=== PATIENT | female | born 1965 | race Caucasian/White ===

== ENCOUNTER → 2023-07-02 17:22 | Outpatient (REF) | payer BC, SELFPAY | LOC: WDC 17:22 | PROVIDERS: ATTENDING PHYSICIAN Obstetrics & Gynecology Gynecology; FAMILY PHYSICIAN Family Medicine | DX: Z01.419 Encounter for gynecological examination (general) (routine) without abnormal findings (principal); Z12.31 Encounter for screening mammogram for malignant neoplasm of breast | CPT/HCPCS: 77063; 77067 ==

== ENCOUNTER 2023-10-15 04:33 | Inpatient (IN) | payer BC, SELFPAY ==
[2023-10-14 20:52] VITALS: BP 132/76
[2023-10-14 21:26] LABS: % Basophils 0.7 % (0-2); % Immature Granulocytes 0.1 % (0-0.5); % Lymphocytes 20.2 % (20.5-51.1); % Monocytes 7.5 % (1.7-9.3); % Neutrophils 70.5 % (42.2-75.2); Absolute Basophils 0.1 10^3/uL (0-0.2); Absolute Eosinophils 0.1 10^3/uL (0-0.7); Absolute Lymphocytes 1.4 10^3/uL (1.2-3.4); Absolute Monocytes 0.5 10^3/uL (0.1-0.6); Absolute Neutrophils 4.8 10^3/uL (1.4-6.5); Hemoglobin 14.5 g/dL (12.0-16.0); Mean Corp Hgb Conc. 35.4 g/dL (33.0-37.0); Mean Corpuscular Hgb 31.5 pg (27.0-31.0); Mean Corpuscular Volume 89.1 fL (81.0-99.0); Mean Platelet Volume 10.5 fL (7.4-10.4); Nucleated Red Blood Cells % 0 %; Platelet Count 287 10^3/uL (130-400); Red Cell Dist. Width 11.7 % (11.5-14.5); White Blood Cell Count 6.8 10^3/uL (4.8-10.8)
[2023-10-14 21:55] LABS: ALT (SGPT) 33 U/L (0-35); AST (SGOT) 34 U/L (14-36); Albumin 4.7 g/dl (3.5-5.0); Alkaline Phosphatase 92 U/L (38-126); Blood Urea Nitrogen 13 mg/dl (7-17); Calcium 10.2 mg/dl (8.4-10.2); Carbon Dioxide 24 mmol/L (22-30); Chloride 104 mmol/L (98-107); Glucose 99 mg/dl (70-99); Potassium 4.5 mmol/L (3.5-5.1); Sodium 137 mmol/L (135-145); Total Bilirubin 0.5 mg/dl (0.2-1.3); eGFR > 60.00
[2023-10-14 22:00] LABS: Troponin I < 0.012 ng/ml
[2023-10-14 22:30] VITALS: BP 134/74
[2023-10-14 23:00] VITALS: BP 125/78
--- NOTE | 2023-10-14 23:52 | ED.GENMED ---
History of Present Illness
<FAB Gilliam - Last Filed: 10/15/23 00:47>
General
Chief Complaint: Chest Pain
Source: patient
Time Seen by Provider: 10/14/23 23:38
History of Present Illness
History of Present Illness:
Patient is a 58 y/o female with PMHx of HTN and hypothyroidism presenting for burning in the chest x3 hours. She states she began 'feeling off' and then she began to get a burning in her left chest. She states she was just sitting at her house when
this happened. She states that every time she inhales it gets worse. She states she then had some numbness that went down her left arm into her hand as well as left jaw numbness. She states she still has mild symptoms but they began to improve 30
minutes ago. She states her right leg has also been cold for the last couple weeks and a week ago she began to get calf numbness. She states this has been constant over the last week. She does state she was recently diagnosed with a right heel spur
and possible Achilles tendon rupture. She states she follows up with Ortho this week. She denies any shortness of breath. She denies any recent surgeries or travel. She denies any vision changes, UGARTE, abdominal pain, nausea.
Past History
<FAB Gilliam - Last Filed: 10/15/23 00:47>
Past History
ED Past Medical History: Hypothyroidism and Other (Pneumonia)
Social History
Tobacco: Non-smoker
Living: with family
Phy Exam
<FAB Gilliam - Last Filed: 10/15/23 00:47>
Physical Exam
Physical Exam:
GENERAL: Alert , in no apparent distress
EYE: pupils equal and reactive
Throat: Airway intact, no exudates
NECK: Supple, no significant adenopathy.
CARDIAC: Regular rate and rhythm . No murmurs.
LUNGS: Clear breath sounds bilaterally, no acute respiratory distress, no wheezes/rales/rhonchi
ABDOMEN: Soft, nondistended, nontender, no cvat
NEUROLOGICAL: Alert and oriented, no focal neuro deficits
SKIN: Warm and dry, no skin discoloration, skin intact.
MUSCULOSKELETAL: No edema, well perfused. Dorsalis pedis pulses 2+ b/l.
PSYCH: Normal and appropriate interaction.
Scores
<Dorota Lyon DO - Last Filed: 10/15/23 04:17>
Heart Score for Chest Pain Patients
STEMI patient?: No
History: Moderately Suspicious
ECG: Nonspecific Repolarization
Age: >45 - <65 years
Risk Factors: 1 or 2 Risk Factors
Troponin: >1 - <3 x Normal Limit
Heart Score for Chest Pain Patients: 5
Heart Score Risk: 20.3% MACE over next 6 weeks
Course
<ST ManePA - Last Filed: 10/15/23 00:47>
Orders/Labs/Results
Orders:
Orders
10/14/23 20:53
Electrocardiogram (*1) Urgent
Reason for Study: Chest Pain
EKG- Treatment ONCE
10/14/23 21:13
CMP [Comprehensive Metabolic Panel] Urgent
Complete Blood Count/With Diff Urgent
Troponin I Urgent
10/15/23 00:24
D-Dimer Urgent
Troponin I Urgent
10/15/23 01:16
CR Chest - 2 Views Urgent
Comment:
Reason For Exam: acute chest pain
US Periph Venous LOWER Ext RT Urgent
Comment:
Reason For Exam: right calf pain
10/15/23 01:20
EKG- Treatment ONCE
10/15/23 02:45
Electrocardiogram (*1) Urgent
Reason for Study: Chest Pain
10/15/23 02:50
Troponin I Urgent
10/15/23 03:49
Aspirin Chewable [Low Strength Aspirin] 324 mg PO NOW STA
10/15/23 04:15
PTT Urgent
Comment: Obtain baseline before beginning heparin infusion if not already collected
Heparin 4,000 units IV NOW STA
Heparin INFUSION titrate rate - CONTINUOUS Heparin 78833 Units/250 ml 25,000 units in 250 ml IV PER PROTOCOL
Weight to be used for heparin protocol in kilograms (kg):: 75.1
Protocol:: Cardiac Tx/Acute Coronary
PTT Goal Range to be used:: PTT 73 to 111 seconds
Order type:: Initial
INITIAL Infusion Dose (UNITS/KG/hr) & then follow protocol:: 15 units/kg/hr
Infusion Dose in UNITS/hr & then follow protocol (UNITS/hr):: 1,150
INFUSION RATE in mL/hr & then follow protocol (mL/hr):: 11.5
PTT less than or equal to 64 seconds:: Increase rate by 200 units/hr (+ 2 mL/hr)
PTT 64.1 to 72.9 seconds:: Increase rate by 100 units/hr (+ 1 mL/hr)
PTT 73 to 111 seconds:: Target Range. No change in rate.
PTT 111.1 to 130.9 seconds:: Decrease rate by 100 units/hr (- 1 mL/hr)
PTT 131 to 199.9 seconds:: HOLD for 1 hr. Then decrease rate by 200 units/hr (- 2 mL/hr)
PTT greater than or equal to 200 seconds:: HOLD for 2 hrs & Notify Provider. Then decrease by 200 units/hr (-
2 mL/hr)
Lab follow-up:: Each change, PTT q6h until 2 consecutive are therapeutic. Then PTT
daily.
Pharmacy Request to Place See Dose Instructions PO NOW STA
Discontinue all Active Warfarin orders?: Yes
Nursing to Place Non Medication Order As Directed
Physician Order: PTT 6 hours after initial start of Heparin infusion
10/15/23 05:[address] See Dose Instructions IV DIRECTED
Abnormal Lab Results
10/14/23
21:13
MCH 31.5 H pg
(27.0-31.0)
MPV 10.5 H fL
(7.4-10.4)
Lymphocytes % 20.2 L %
(20.5-51.1)
10/14/23 21:13
10/14/23 21:13
Vital Signs
Initial and Last Documented VS:
Initial Vital Signs
Temp Pulse Resp BP Pulse Ox
98.3 F 56 22 132/76 100
10/14/23 20:52 10/14/23 20:52 10/14/23 20:52 10/14/23 20:52 10/14/23 20:52
Last Documented Vital Signs
Temp Pulse Resp BP Pulse Ox
98.3 F 49 15 133/81 98
10/14/23 20:52 10/15/23 03:00 10/15/23 03:00 10/15/23 02:00 10/15/23 03:00
<Dorota Lyon, DO - Last Filed: 10/15/23 04:17>
Orders/Labs/Results
Orders:
Orders
10/14/23 20:53
Electrocardiogram (*1) Urgent
Reason for Study: Chest Pain
EKG- Treatment ONCE
10/14/23 21:13
CMP [Comprehensive Metabolic Panel] Urgent
Complete Blood Count/With Diff Urgent
Troponin I Urgent
10/15/23 00:24
D-Dimer Urgent
Troponin I Urgent
10/15/23 01:16
CR Chest - 2 Views Urgent
Comment:
Reason For Exam: acute chest pain
US Periph Venous LOWER Ext RT Urgent
Comment:
Reason For Exam: right calf pain
10/15/23 01:20
EKG- Treatment ONCE
10/15/23 02:45
Electrocardiogram (*1) Urgent
Reason for Study: Chest Pain
10/15/23 02:50
Troponin I Urgent
10/15/23 03:49
Aspirin Chewable [Low Strength Aspirin] 324 mg PO NOW STA
10/15/23 04:15
PTT Urgent
Comment: Obtain baseline before beginning heparin infusion if not already collected
Heparin 4,000 units IV NOW STA
Heparin INFUSION titrate rate - CONTINUOUS Heparin 92230 Units/250 ml 25,000 units in 250 ml IV PER PROTOCOL
Weight to be used for heparin protocol in kilograms (kg):: 75.1
Protocol:: Cardiac Tx/Acute Coronary
PTT Goal Range to be used:: PTT 73 to 111 seconds
Order type:: Initial
INITIAL Infusion Dose (UNITS/KG/hr) & then follow protocol:: 15 units/kg/hr
Infusion Dose in UNITS/hr & then follow protocol (UNITS/hr):: 1,150
INFUSION RATE in mL/hr & then follow protocol (mL/hr):: 11.5
PTT less than or equal to 64 seconds:: Increase rate by 200 units/hr (+ 2 mL/hr)
PTT 64.1 to 72.9 seconds:: Increase rate by 100 units/hr (+ 1 mL/hr)
PTT 73 to 111 seconds:: Target Range. No change in rate.
PTT 111.1 to 130.9 seconds:: Decrease rate by 100 units/hr (- 1 mL/hr)
PTT 131 to 199.9 seconds:: HOLD for 1 hr. Then decrease rate by 200 units/hr (- 2 mL/hr)
PTT greater than or equal to 200 seconds:: HOLD for 2 hrs & Notify Provider. Then decrease by 200 units/hr (-
2 mL/hr)
Lab follow-up:: Each change, PTT q6h until 2 consecutive are therapeutic. Then PTT
daily.
Pharmacy Request to Place See Dose Instructions PO NOW STA
Discontinue all Active Warfarin orders?: Yes
Nursing to Place Non Medication Order As Directed
Physician Order: PTT 6 hours after initial start of Heparin infusion
10/15/23 05:[address] See Dose Instructions IV DIRECTED
Abnormal Lab Results
10/14/23
21:13
MCH 31.5 H pg
(27.0-31.0)
MPV 10.5 H fL
(7.4-10.4)
Lymphocytes % 20.2 L %
(20.5-51.1)
10/14/23 21:13
10/14/23 21:13
Vital Signs
Initial and Last Documented VS:
Initial Vital Signs
Temp Pulse Resp BP Pulse Ox
98.3 F 56 22 132/76 100
10/14/23 20:52 10/14/23 20:52 10/14/23 20:52 10/14/23 20:52 10/14/23 20:52
Last Documented Vital Signs
Temp Pulse Resp BP Pulse Ox
98.3 F 49 15 133/81 98
10/14/23 20:52 10/15/23 03:00 10/15/23 03:00 10/15/23 02:00 10/15/23 03:00
<FAB Gilliam - Last Filed: 10/15/23 00:47>
MDM/Problems Addressed
Differential Diagnosis Includes:
Differential diagnosis includes but is not limited to AR, angina, DVT, PE, GERD
<FAB Gilliam - Last Filed: 10/15/23 00:47>
*Pulse Oximetry
Patient hypoxic: no
*EKG
Interpreted by ED Provider?: Yes
EKG Intrepretation Date: 10/15/23
Interpretation: abnormal
Comparison EKG: changes noted (PACs are no longer present, nonspecific T wave abnormalities in anterolateral leads )
Heart Rate: 64
Rate: normal
Rhythm: sinus
[place]: normal axis
Interval: normal interval
QRS Pattern: normal QRS
Ischemia: non-specific ST changes
*Guidance Counselor Interpretation
Rate: Guidance Counselor- N/A
*Critical Care Note
Total Time (30-74mins, 75-104mins- exclusive of procedures): Not Applicable
<Dorota Lyon DO - Last Filed: 10/15/23 04:17>
*Radiology
Radiology exam reviewed: preliminary read by ED provider (Chest x-ray is unremarkable. Unchanged from previous.)
*Guidance Counselor Interpretation
Rate: normal
Interpretation: normal
Rhythm: sinus
ED Attending Note
<FAB Gilliam - Last Filed: 10/15/23 00:47>
-
Portions of this chart may have been created with voice recognition software.� Occasional wrong word or��sound alike� substitutions may have occurred due to the inherent limitations of voice recognition software.
<Dorota Lyon DO - Last Filed: 10/15/23 04:17>
ED Attending Note
Patient seen and examined by attending physician: Yes
I performed the substantive portion of visit, reviewed & personally made and approve the management plan that is documented in note by myself or DILSHAD.: Yes
ED Attending Note:
This is a 58-year-old woman who has history of hypertension, hypothyroidism maintained on levothyroxine and lisinopril.
Currently following with orthopedics, Dr. Thorntno with complaints of right posterior ankle pain, diagnosed with right Achilles tendinitis and a heel spur at initial office visit 1 week ago. She had follow-up MRI of her ankle a few days ago,
awaiting results and follow-up appointment with her orthopedist. Over the past week and a half she has noticed intermittent right posterior calf pain, cramping and feeling that her right leg is cold, especially her right foot.
No associated abdominal nor back pain. She denies leg swelling. No recent travel.
Tonight, while sitting on the couch she began to not feel well, nonspecific symptoms and overall felt 'off' she felt that the palms of her hands were sweaty, sticky and after she got up to wash her hands she then developed left-sided chest pain,
pressure that radiated to her left lateral neck/left jaw, with left arm numbness, weakness. No back pain, no headache, no palpitations, no nausea no vomiting, no diaphoresis.
No history of similar episodes in the past.
Chest pain, left arm numbness, left jaw ache lasted approximately 30 minutes and resolved shortly after arrival to the ED.
Thus far no recurrence.
She is a non-smoker. Denies alcohol use.
History of hypertension but reports well-controlled. No history of diabetes nor hyperlipidemia.
She had been taking ibuprofen for right ankle pain but discontinued this week and a half ago.
GENERAL: 58-year-old woman appears her stated age, awake and alert, pleasant, appears in no acute distress.
EYE: pupils equal, anicteric
NECK: Supple, nontender, no meningismus, no significant adenopathy. No JVD. No bruit.
ENT: oral mucosa is moist. No rhinorrhea.
CARDIAC: Regular rate and rhythm. no murmur.
LUNGS: Clear breath sounds bilaterally, no acute respiratory distress, no wheezes/rales/rhonchi
ABDOMEN: Soft, nondistended, without focal tenderness, no r/g, no cvat. normoactive BS.
NEUROLOGICAL: Alert and oriented x3, no focal neuro deficits. Motor strength is 5/5 bilaterally. Gross sensation is intact.
SKIN: Warm and dry, normal color, skin intact. No rash.
MUSCULOSKELETAL: No C/C/E. peripheral pulses are full and equal b/l. Rapid capillary refill bilateral toes. Bilateral feet are mildly cool to touch but there is no pallor nor erythema. Mild to moderate tenderness about the right Achilles tendon
with moderate pain with dorsiflexion of right foot. There is no peripheral edema, no palpable cords. Dorsalis pedis pulses are full and equal bilaterally.
PSYCH: Normal and appropriate interaction.
Concern for ACS, GERD, DVT, PE, pneumonia, pleurisy.
EKG shows normal sinus rhythm, flattened T waves laterally versus minimal terminal T wave inversion laterally nonspecific but new compared to previous EKG December 2022.
Thus far labs are unremarkable including negative troponin. Will repeat troponin and will check D-dimer as well.
There is no evidence of arterial insufficiency on exam and no significant risk factors for peripheral arterial disease.
If D-dimer negative will plan for chest x-ray.
I suspect right calf pain is related to current Achilles tendinitis but will consider venous Doppler right lower extremity assess for potential DVT.
10/15/2023 03:45 AM
Patient remains chest pain-free and comfortable.
Chest x-ray is unremarkable. Ultrasound right lower extremity negative for DVT.
D-dimer is negative.
Troponin however trending up from less than 0.012, 0.014, and down 0.020.
Repeat EKG shows terminal T wave inversions much more pronounced than initial EKG and new compared to previous EKG of December 2022.
Concern for ACS thus will admit to hospitalist service, continue to trend troponin. Will give 324 mg chewable aspirin. Will start IV heparin.
Plan for cardiology evaluation.
Discharge Plan
Departure
Patient Disposition: Admit
Date of Disposition: 10/15/23
Time of Disposition: 03:49
Admit to: Telemetry
Admit to doctor: Emmanuelle
Presentation/result/management discussed w/ accepting MD/DO: Hospitalist
Condition: Fair
Discharge Problem:
Chest pain, r/o ACS
Prescriptions:
No Action
lisinopril 5 mg Tablet
5 mg PO DAILY
levothyroxine [Synthroid] 112 mcg Tablet
112 mcg PO DAILY
Referrals:
Ginny Celeste MD [Family Provider] -
Interventions
Interventions:
*Risk Screen - Suicide Last Done: 10/14/23 20:52
*General Assessment Last Done: 08/19/24 22:15
*Neglect/Abuse Screening Last Done: 10/14/23 20:52
ED- Cardiac Assessment Last Done: 10/15/23 00:00
Discharge Date and Time
Print Language: MONEGASQUE
[2023-10-15] VITALS (34 sets, daily range): BP systolic 106–156; BP diastolic 62–108; BMI 26.0
[2023-10-15 01:04] LABS: Troponin I 0.014 ng/ml
[2023-10-15 01:14] LABS: D-Dimer < 0.27 ug/mlFEU (0.00-0.50)
--- NOTE | 2023-10-15 04:25 | HPS.HSE ---
Family Physician
-
Family Physician: Ginny Celeste
Chief Complaint
-
CP
History of Present Illness
58F HX HTN, Hypothyroid pw CP
- abrupt onset while sitting
- lasted for 3 Hrs : CP free since admission
- described as fluttering sensational and felt like indigestion at Lt upper chest
- denied radiation to left arm but felt like fatigue
- She denies any shortness of breath.
- No prior HX CAD
Recently diagnosed with a right heel spur and possible Achilles tendon rupture
Medical History
Past Medical History
Past Medical History: Reports HTN and Hypothyroidism
Past Surgical History: Reports None
Social History
Tobacco: Non-smoker
Alcohol: Occasional
Family History
Family History: Not pertinent
Allergies / Home Medications
Allergies reflects when Allergies were last updated in [facility].
Home Medications with original date entered in [facility]
Allergy/Medication List:
Allergies
Allergy/AdvReac Type Severity Reaction Status Date / Time
No Known Allergies Allergy Verified 10/14/23 21:03
Home Medications
levothyroxine 112 mcg tablet (Synthroid) 112 mcg PO DAILY 01/21/23
lisinopril 5 mg tablet 5 mg PO DAILY 01/21/23
Review of Systems
-
Constitutional: Reports No Symptoms
EENT: Reports No Symptoms
Respiratory: Reports No Symptoms
Cardiac: Reports See HPI and Chest Pain
Abdomen/GI: Reports No Symptoms
: Reports No Symptoms
Musculoskeletal: Reports No Symptoms
Skin: Reports No Symptoms
Neurological: Reports No Symptoms
Endocrine: Reports No Symptoms
Hematologic/Lymphatic: Reports No Symptoms
Psych: Reports No Symptoms
Physical Exam
Vital Signs
Vital Signs
Temp Pulse Resp BP Pulse Ox
98.3 F 49 15 133/81 98
10/14/23 20:52 10/15/23 03:00 10/15/23 03:00 10/15/23 02:00 10/15/23 03:00
Physical Exam
General: Well Developed, Well Nourished and No Apparent Distress
HEENT: NormoCephalic, Moist mucous membranes and Atraumatic
Respiratory: Clear
Cardiac: S1/S2 and Regular Rhythm; No Murmur or Rub
GI: Soft, Non Tender, Non Distended and Normal Bowel Sounds; No Organomegaly
Rectal: Deferred by Provider
Musculoskeletal: No Clubbing, No Cyanosis and No Edema
Skin: No Rash
Neuro: Nonfocal/grossly intact
Laboratory Results
-
10/14/23 21:13
10/14/23 21:13
Laboratory Results
Total Bilirubin 0.5 mg/dl (0.2-1.3) 10/14/23 21:13
AST 34 U/L (14-36) 10/14/23 21:13
ALT 33 U/L (0-35) 10/14/23 21:13
Alkaline Phosphatase 92 U/L (38-126) 10/14/23 21:13
Troponin I 0.020 ng/ml D 10/15/23 02:50
Data Reviewed
-
Medical Tests (Nuc Med, Echo, EKG etc): Report Reviewed by me
Lab Data: Labs Reviewed by me
Old Records: Reviewed
Impression/Plan
-
Reviewed VS:
Vital Signs
Temp Pulse Resp BP Pulse Ox
98.3 F 49 15 133/81 98
10/14/23 20:52 10/15/23 03:00 10/15/23 03:00 10/15/23 02:00 10/15/23 03:00
Data
nl CBC
DD < 0.27
Unramarkable CMP
TPNI < 0.012 --> 0.014 --> 0.02
EKG 10/15/23 & 0245
SINUS BRADYCARDIA
ST and T WAVE ABNORMALITY, CONSIDER ANTEROLATERAL ISCHEMIA
ABNORMAL ECG
WHEN COMPARED WITH ECG OF 14-OCT-2023 20:57,
INVERTED T WAVES HAVE REPLACED NONSPECIFIC T WAVE ABNORMALITY IN ANTEROLATERAL
LEADS
04/16/22 TTE
Normal left ventricular size, wall thickness and systolic function.
No regional wall motion abnormalities are seen.
LV ejection fraction is 60-65%.
Mild tricuspid regurgitation.
No prior echo for comparison.
NO PRIOR hospitalist admission:
ASSESSMENT & PLAN
Atypical CP for classic Angina : CP free since admission
Associated with subtle T wave inversions laterally with slowly upward trending TPNI
- concerning for [place]/ ACS
- agree with ASA and Heparin gtt
- NPO in case cardiac cath is indicated
- SL NTG PRN
- DCA card consult
Benign HTN
- cont. Lisinopril
Hypothyroid
- cont. LT4
DVT Px: on Heparin gtt
Code: Full
IP TLM
[2023-10-15] MEDS: LOW STRENGTH ASPIRIN 324 MG PO (04:28)
[2023-10-15 04:57] LABS: APTT 27.3 Sec (23.4-35.0)
[2023-10-15] MEDS: HEPARIN 4000 UNITS IV (05:13)
[2023-10-15] MEDS: FLUSH (NSS) 1 FLUSH IV (05:14)
[2023-10-15] MEDS: HEPARIN 25000 UNITS/250 ML IV (05:14)
--- NOTE | 2023-10-15 08:03 | CON.CAR ---
Addendum entered and electronically signed by Nayan Holley MD 10/15/23 11:48:
58 yo female with PMH of HTN, hyperlipidemia presented to ED after episode of chest discomfort last night. It was associated with an abnormal sensation in her left arm and jaw, and also sweaty/sticky palms. Exam with RRR, no murmurs, no edema.
TnI is within normal limits but trending up. EKG has new anterior TWI. Echo is normal.
Presentation consistent with ACS/unstable angina. ASA, heparin drip. Plan for cardiac cath today. Discussed with interventional cardiology.
Original Note:
Consultation
Consultation Request
Date/Time Consultation Requested: 10/15/2023 04:30
Date/Time Consultation Performed: 10/15/2023 07:40
Requesting Provider: Dr. Handley
Performing Provider: BELLO Valladares for Dr. Holley
Reason for Consultation: Chest pain
Medical History
-
Chief Complaint: Chest pain
History of Present Illness:
Karen Eduardo is a 58-year-old female (last seen by Dr. Padilla in 2014), with hypertension, hypothyroidism, dyslipidemia, and lumbar radiculopathy who presented to the emergency department with a chief complaint of chest discomfort. Initially it
started as 'sticky palms of my hands' but did not feel sweaty just sticky. She felt like she was in a daze, not quite confused but off. She got up to wash her hands. She then thought she would walk around 'stretch her ankle'. She then began
having left anterior chest discomfort. She says it was not painful but felt almost like a gas bubble. Her left arm felt very weak. Her left jaw felt 'funny'. She did not have any pain but it fell off. Her EKG shows an anterior T wave
abnormality with sinus bradycardia.
Of note she is currently seen with orthopedics for a right ankle injury. She does not recall any specific event where this occurred, she simply woke up with pain. She has an MRI scheduled 10/24/2023.
Past Medical History
Past Medical History: HTN, Hypercholesterolemia and Hypothyroidism
Past Surgical History: , Orthopedic and Tonsilectomy
Social History
Tobacco: Non-Smoker
Alcohol: Occasional
Drug: None
Personal:
Living: With Family
Family History
Family History: Reviewed & Not Pertinent (Denies early CAD and SCD)
Allergies / Home Medications
Allergy/AdvReac Type Severity Reaction Status Date / Time
No Known Allergies Allergy Verified 10/14/23 21:03
�Medication �Instructions �Recorded �Confirmed �Type
levothyroxine 112 mcg tablet 112 mcg PO DAILY 01/21/23 10/15/23 History
(Synthroid)
lisinopril 5 mg tablet 5 mg PO DAILY 01/21/23 10/15/23 History
Review of Systems
-
History Source: Patient
All other systems: Negative unless noted
Constitutional: Fatigue
EENT: No Symptoms
Respiratory: No Symptoms
Cardiac: Other (See HPI)
Abdomen/GI: No Symptoms
: No Symptoms
Musculoskeletal: Joint Pain (Right ankle)
Skin: No Symptoms
Neurological: No Symptoms
Endocrine: No Symptoms
Hematologic/Lymphatic: No Symptoms
Physical Exam
Vital Signs
Temp Pulse Resp BP Pulse Ox
98.3 F 51 17 132/79 99
10/14/23 20:52 10/15/23 06:00 10/15/23 06:00 10/15/23 06:00 10/15/23 04:30
Lab Results
10/14/23 21:13
10/14/23 21:13
Troponin I 0.020 ng/ml D 10/15/23 02:50
Physical Exam
General: Well Developed, Well Nourished, No Apparent Distress and Comfortable
HEENT: Normocephalic and Anicteric
Respiratory: Clear and Non Labored Respirations
Cardiac: S1/S2 and Regular Rhythm
Breast: Deferred by me
GI: Soft, Non Tender, Non Distended and Normal Bowel Sounds
Rectal: Deferred by Provider
Genito-urinary: No Costovertebral Tender
Musculoskeletal: No Clubbing, No Cyanosis and No Edema
Skin: Warm and Dry
Neuro: AO x 3
Hematologic/Lymphatic: No Lymphadenopathy
Psych: Calm
Impression / Plan
-
ACS
-Chest pain-free
-She received ASA 324mg and is on a heparin drip
-Anterolateral T wave abnormality
-Trend troponin
-Echocardiogram
-Cardiac catheterization will be recommended
Dyslipidemia
-Lipid panel 09/2023: TC 228, HDL 53, LDL 155, TG 92
-Start atorvastatin 40 mg
Sinus bradycardia
Right ankle pain, MRI scheduled for next week, she has seen orthopedics in the outpatient setting (Dr. Thornton)
Hypothyroidism, on levothyroxine
Data Reviewed
-
EKG: Report Reviewed by me (Sinus bradycardia, anterior lateral T wave abnormality, rate 52)
Radiology: Report Reviewed by me (Clear lungs without significant change.)
Ultrasound: Report Reviewed by me (RLE: No evidence of deep venous thrombosis.)
Medical Tests (Nuc Med, Echo etc): Report Reviewed by me (Echo 04/16/2022: EF 60-100%. Mild TR.)
Labs: Labs Reviewed by me
Old Records: Reviewed
[2023-10-15] MEDS: LOW STRENGTH ASPIRIN 81 MG PO (08:34)
--- NOTE | 2023-10-15 08:57 | W.PN.HOSP.TC ---
Today's Communication/Plan
-
ACS protocol. Cardiac catheterization today.
Assessment / Plan
Assessment / Plan
Physical exam:
General: Well Developed, Well Nourished and No Apparent Distress
HEENT: Normocephalic, Atraumatic and Moist Mucous Membranes
Respiratory: Clear to Auscultation; Negative Wheezes, Rales or Rhonchi
Cardiac: Regular Rhythm and S1/S2
GI: Soft, Nontender and Nondistended
Musculoskeletal: No Clubbing, No Cyanosis and No Edema
Neuro: Awake, Alert and Oriented
Psych: Calm
A/P:
Unstable angina-EKG with new T wave inversion anteriorly, troponins upward trend noticed, continue heparin drip and aspirin, nitro as needed, discussed with cardiology today. Plan for cardiac catheterization. Discussed with boyfriend at bedside.
Hypertension-restart GRACE inhibitor
Hypothyroidism-restart thyroid replacement
DVT prophylaxis-on heparin drip
CODE STATUS-full code
Anticipated Discharge: 24 - 48 hours
Subjective/Interval History
-
Date of Service: October 15, 2023
Patient denies any chest pain or shortness of breath today.
Objective Data
-
Labs:
Laboratory Results
10/14/23 10/15/23 10/15/23
21:13 04:33 11:15
WBC 6.8
Hgb 14.5
Hct 41.0
Plt Count 287
APTT 27.3 Pending
Sodium 137
Potassium 4.5
Chloride 104
Carbon Dioxide 24
BUN 13
Creatinine 0.7
Glucose 99
Calcium 10.2
Total Bilirubin 0.5
AST 34
ALT 33
Alkaline Phosphatase 92
Vital Signs:
Vital Signs
Temp Pulse Resp BP Pulse Ox
98.3 F 51 17 132/79 99
10/14/23 20:52 10/15/23 06:00 10/15/23 06:00 10/15/23 06:00 10/15/23 04:30
[2023-10-15 09:11] LABS: Troponin I < 0.012 ng/ml
--- NOTE | 2023-10-15 12:03 | CM ---
Addendum entered by Consuelo Jarvis 10/15/23 12:08:
PCP: Jose Celeste
Pharmacy: [facility] in [place]
Correction: She denied any +SDOHs.
Original Note:
CM reviewed chart.
CM introduced self and role. Spoke with patient and someone named Donald at bedside.
Dx: ACS
She is on a heparin gtt and it was recommended that she have a heart cath.
Patient is independent. She lives with her daughter.
She drives. Donald will provide transportation on discharge.
She lives in a single level home. She has no steps to enter.
She has her daughter and Donald for support.
She is retired
He denied any +SDOH's.
DISCHARGE DISPOSTION:
Discharge to home when medically stable.
[2023-10-15 12:50] LABS: ACT-LR - POC 308 Seconds (116-155)
[2023-10-15 13:11] LABS: TSH Reflex To Free T4 0.18 uIU/ml (0.47-4.68)
[2023-10-15 13:16] LABS: ACT-LR - POC 300 Seconds (116-155)
[2023-10-15 13:41] LABS: Free T4 2.13 ng/dl (0.78-2.19)
--- NOTE | 2023-10-15 14:14 | PTCARENOTE ---
Received pt from medical lab scientist via bed; pt AAOx3 and resting comfortably in bed; pt reports no pain at this time; Sinus kimmy with Prolonged QT on monitor and VSS; TR band on Right writs C/D/I, air to be removed at 1540; lungs clear; positive bowel
sounds; pt voids clear yellow urine; palpable pulses throughout; no edema noted; see nursing documentation for further details.
--- NOTE | 2023-10-15 14:40 | PTCARENOTE ---
Patient bradycardic to 30-40's on monitor. RN at bedside to see patient, patient complaining of feeling dizzy, pale, diaphoretic. Patient became unresponsive, eyes open, no reply to verbal or tactile stimuli with axillary posturing. FORGE OPERATOR called, IVF
hung, O2 2LNC applied, defib pads applied, patient returned to baseline 50's HR without pharmacological intervention, see worklist for vital signs. Patient placed in a Trendelenburg position, legs elevated. 2.77 sec pause on telemetry during this
episode. Pressure stable, satting 100% on 2LNC. Cardiology aware, internal med attending aware, all at bedside.
Patient called RN back in to report silver floaters in both eyes, and then in one eye. Cardiology notified, [facility] pending.
--- NOTE | 2023-10-15 14:45 | W.PN.UPDATE ---
Addendum entered and electronically signed by BELLO Dietrich 10/15/23 15:43:
Patient with visual changes. 'Big, bright floaters.' More prominent in her right eye. No weakness in her extremities. CT ordered.
She has received intravenous contrast in the past and denies known reactions.
Original Note:
Update Note
Progress Note Update
Notified by nursing about bradycardia. HR briefly in the 30s. Junctional escape noted. She was clammy and reported being dizzy. She was briefly unresponsive. HR quickly returned to her baseline of 50s without intervention. She was given IV fluid.
Blood glucose stable.
--- NOTE | 2023-10-15 14:48 | CM ---
CM consult to uriel merritt. CM called [facility] who reported that patient has a $0 co-pay.
[2023-10-15 14:52] LABS: Glucose - Point of Care 108 mg/dl (70-99)
--- NOTE | 2023-10-15 14:52 | CM ---
Received consult to check on co-pay for Brilinta 90 mg po bid. Telephone call to Cole valiente, ([phone]) to check on co-pay. Her co-pay will be $100.00 for a 90 day supply. She has commercial insurance so she can use the $5.00 coupon. Placed the
$5.00 coupon in her red discharge folder. Telephone call to [facility] to check if they have it in stock. [facility] has Brilinta in stock.
--- NOTE | 2023-10-15 15:00 | W.PN.UPDATE ---
Update Note
Progress Note Update
Patient had a rapid. It appears that she had a vasovagal event. Cardiac cath with stent to LAD. Cardiology attended to rapid. Will repeat labs. IVF. Discussed with cardio.
[2023-10-15 16:25] LABS: Hematocrit 37.8 % (37.0-47.0); Hemoglobin 13.3 g/dL (12.0-16.0); Mean Corp Hgb Conc. 35.2 g/dL (33.0-37.0); Mean Corpuscular Hgb 30.6 pg (27.0-31.0); Mean Corpuscular Volume 86.9 fL (81.0-99.0); Mean Platelet Volume 10.5 fL (7.4-10.4); Platelet Count 265 10^3/uL (130-400); Red Blood Cell Count 4.35 10^6/uL (4.20-5.40); Red Cell Dist. Width 11.6 % (11.5-14.5); White Blood Cell Count 7.6 10^3/uL (4.8-10.8)
[2023-10-15 16:54] LABS: Blood Urea Nitrogen 11 mg/dl (7-17); Calcium 9.4 mg/dl (8.4-10.2); Carbon Dioxide 28 mmol/L (22-30); Chloride 106 mmol/L (98-107); Estimated Creatinine Clearance 86 ml/min; Glucose 95 mg/dl (70-99); Potassium 4.5 mmol/L (3.5-5.1); Sodium 136 mmol/L (135-145); eGFR > 60.00
[2023-10-15] MEDS: LIPITOR 80 MG PO (17:06)
[2023-10-15 17:10] LABS: APTT 191.1 Sec (23.4-35.0)
[2023-10-15] MEDS: BRILINTA 90 MG PO (19:51)
--- NOTE | 2023-10-15 19:56 | PTCARENOTE ---
Pt using bed side commode. C/o lightheadedness, BP 120/73 HR 61 O2 99% on 2L. Pt safely was transferred back to bed.
[2023-10-16] VITALS (9 sets, daily range): BP systolic 107–135; BP diastolic 57–93
[2023-10-16] MEDS: SYNTHROID 112 MCG PO (04:30)
[2023-10-16 04:48] LABS: Hematocrit 36.4 % (37.0-47.0); Hemoglobin 12.9 g/dL (12.0-16.0); Mean Corp Hgb Conc. 35.4 g/dL (33.0-37.0); Mean Corpuscular Hgb 30.8 pg (27.0-31.0); Mean Corpuscular Volume 86.9 fL (81.0-99.0); Mean Platelet Volume 10.6 fL (7.4-10.4); Platelet Count 269 10^3/uL (130-400); Red Blood Cell Count 4.19 10^6/uL (4.20-5.40); Red Cell Dist. Width 11.7 % (11.5-14.5); White Blood Cell Count 8.1 10^3/uL (4.8-10.8)
[2023-10-16 05:10] LABS: Blood Urea Nitrogen 15 mg/dl (7-17); Calcium 9.7 mg/dl (8.4-10.2); Carbon Dioxide 25 mmol/L (22-30); Chloride 108 mmol/L (98-107); Estimated Creatinine Clearance 86 ml/min; Glucose 85 mg/dl (70-99); HDL Cholesterol 40 mg/dl; LDL Cholesterol, Calculated 106 mg/dl; Potassium 4.1 mmol/L (3.5-5.1); Sodium 139 mmol/L (135-145); Total Cholesterol 164 mg/dl (50-199); Triglyceride 91 mg/dl (10-149); Very Low Density Lipoprotein 18 mg/dl (0-30); eGFR > 60.00
[2023-10-16] MEDS: ZESTRIL 5 MG PO (08:18)
[2023-10-16] MEDS: BRILINTA 90 MG PO (08:19)
[2023-10-16] MEDS: LOW STRENGTH ASPIRIN 81 MG PO (08:19)
--- NOTE | 2023-10-16 08:30 | ITS.CL.ANGIO ---
Data Management Specialist - Angioplasty
Angioplasty
Procedure Report:
CARDIAC CATHETERIZATION REPORT
Date of Procedure: 10/15/2023
Performing Physician: Dr. Wade Eagle MD, PhD
Referring: Dr. Ben Holley MD, PhD
PROCEDURES PERFORMED:
1. Coronary angiography
2. Left heart catheterization
4. IVUS of LAD
5. PCI of LAD with drug-eluting stent x1
HEMODYNAMIC DATA
LVEDP 10 mmHg
No gradient on pullback across the aortic valve
CORONARY ANGIOGRAPHY
Dominance: right
Left Main: The LM is a long vessel that quadrifurcates giving rise to a LCx, high-rising OM1/ramus, high-rising D1/ramus, and the LAD. There is no disease.
LAD: gives rise to a moderate-caliber high-rising D1/ramus, moderate-caliber OM2, multiple septals, and wraps around the apex. There is a 90% stenosis in the mid-distal LAD after D2 that is the culprit for the patient's presentation and was treated
with DESx1 as described.
Circumflex: moderate caliber giving rise to a large OM1/ramus and moderate caliber OM2. There are trivial luminal irregularities.
RCA: gives rise to a moderate caliber RPDA and several RPL branches. There is no coronary artery disease.
PROCEDURE NARRATIVE (IVUS-GUIDED PCI TO LAD WITH VICENTE x1)
Heparin was administered to maintain ACT>250. The left main was engaged with an EBU 3.0 guide catheter which provided adaquate support. A short Runthrough wire was placed in the distal LAD. Straightening artifact was noted in the distal LAD. Initial
lesion preparation was performed with a 2.0x12 m balloon with full expansion noted. IVUS was performed demonstrating minimal calcification, a 2.5 mm distal reference diameter, and 2.75 mm proximal reference diameter with healthy landing zone distal
to D2. A 2.5x22 mm Medtronic VICENTE was selected and deployed at 14 javier with full expansion. Post dilation was performed in the proximal stent with a 2.75 NC balloon. Repeat IVUS demonstrated adequate apposition and expansion without evidence of
dissection. Final angiography demonstrated and excellent result with no complication and resolution of wire bias. The patient was loaded with 180 mg Ticagrelor and a TR band placed.
CONCLUSIONS:
1. Normal LV filling pressures with no aortic stenosis
2. Single-vessel obstructive coronary artery disease with culprit 90% occlusion of the mid-LAD
3. Successful IVUS-guided PCI to the mid-LAD with placement of a 2.5x22 mm VICENTE post-dilated to 2.75 mm proximally
RECOMMENDATIONS:
1. DAPT with ASA/Ticagrelor for at least 1 year
2. Aggressive secondary prevention of coronary artery disease including goal LDL<70
3. Cardiac rehab
4. TTE
5. Post-PCI follow up
Copy To: Ginny Celeste MD
Signed: Wade Eagle MD, PhD
--- NOTE | 2023-10-16 08:46 | W.CARD.POSTP ---
Post PCI Follow Up
Procedure
Procedure/Date: 10/15/23 PCI LAD x 1
Subjective: No CP, mild dyspnea and swelling in left hand
Site
Site: Radial: Right and No ht/bleeding, distal pulses palpable (mild ecchymosis, slight swelling of hand)
Tele / EKG
SR/SB no ectopy
Labs
10/16/23 04:09
10/16/23 04:09
APTT 191.1 Sec (23.4-35.0) H* 10/15/23 16:11
Triglycerides 91 mg/dl (10-149) 10/16/23 04:09
LDL Cholesterol, Calc 106 mg/dl 10/16/23 04:09
VLDL Cholesterol, Calc 18 mg/dl (0-30) 10/16/23 04:09
HDL Cholesterol 40 mg/dl 10/16/23 04:09
Free T4 2.13 ng/dl (0.78-2.19) 10/14/23 21:13
DAPT Medication
DAPT Medication: Aspirin 81mg daily and Tricagrelor 90 mg BID
Case Management checking trevino: Yes ($5/mo with coupon )
Plan
Cardiac rehab c/s
ASA/Brilinta/Lisinopril/Atorvastatin, no BB d/t bradycardia
f/u apt SOFTWARE ENGINEERING SUPERVISOR 11/12 @120pm
--- NOTE | 2023-10-16 09:34 | CM ---
Reviewed chart. Met with Mrs. Eduardo to review discharge plans. She states prior to admission she resides with her daughter in a one story home without any steps to enter. She states her daughter is away for a few days and she will be home by
herself. She states prior to admission she was independent with ambulation and adls. She states she does nto have any DME in the home. She states she has a prescription plan with [facility] and uses [facility]. Her Brilinta 90 mg po bid
prescription has been filled by [facility]. We reviewed co-pay for the Brilinta 90 mg p.o. bid and she is agreeable to the co-pay. The $5.00 coupon is in her red discharge folder. Medical work-up in progress. The discharge plan is to return
home when medically stable.
--- NOTE | 2023-10-16 09:59 | W.PN.CD ---
Today's Communication / Plan
-
discharge planning on ASA, Brilinta, atorvastatin, lisinopril
we will arrange for follow up with us
Impression / Plan
-
ACS/unstable angina: VICENTE to 90% mid LAD 10/14
-echo with normal LVEF
-cont ASA/Brilinta
-no beta roger due to sinus kimmy
-continue lisinopril 5mg daily
Dyslipidemia
-Lipid panel 09/2023: TC 228, HDL 53, LDL 155, TG 92
-Started atorvastatin 80 mg
Sinus bradycardia: stable, avoid AV tammi agents
Hypothyroidism, on levothyroxine
Physical Exam
Vital Signs/Labs
Vital Signs
Temp Pulse Resp BP Pulse Ox
98.1 F 54 20 110/72 98
10/16/23 07:28 10/16/23 08:18 10/16/23 07:28 10/16/23 08:18 10/16/23 07:28
10/15/23 10/16/23 10/17/23
06:59 06:59 06:59
Actual Weight 75.1 kg
10/16/23 04:09
10/16/23 04:09
APTT 191.1 Sec (23.4-35.0) H* 10/15/23 16:11
Triglycerides 91 mg/dl (10-149) 10/16/23 04:09
LDL Cholesterol, Calc 106 mg/dl 10/16/23 04:09
VLDL Cholesterol, Calc 18 mg/dl (0-30) 10/16/23 04:09
HDL Cholesterol 40 mg/dl 10/16/23 04:09
Free T4 2.13 ng/dl (0.78-2.19) 10/14/23 21:13
LAB Results
10/14/23 10/15/23 10/15/23
21: 00:24 02:50
Troponin I < 0.012 0.014 0.020 D
10/15/23 10/15/23 10/15/23
04:35 08:28 10:35
Troponin I Cancelled < 0.012 D Cancelled
Physical Exam
Constitutional: No acute distress and Comfortable
EENT: Moist mucous membranes
Cardiovascular: Rhythm & rate is regular, Pedal edema is absent, JVD pressure is normal and Systolic murmur absent
Respiratory: Respiratory effort normal and Lungs clear to auscul.
GI: Soft and Distention absent
Neuro/Psych: AO x 3
Data Reviewed
-
Date of Service: October 16, 2023
EKG: Other (Tele: SB 50s, brief SVT)
Labs: Labs Reviewed by me
--- NOTE | 2023-10-16 10:02 | W.PN.HOSP.TC ---
Today's Communication/Plan
-
Discharge
Assessment / Plan
Assessment / Plan
General: Well Developed, Well Nourished and No Apparent Distress
HEENT: Normocephalic, Atraumatic and Moist Mucous Membranes
Respiratory: Clear to Auscultation; Negative Wheezes, Rales or Rhonchi
Cardiac: Regular Rhythm and S1/S2
GI: Soft, Nontender and Nondistended
Musculoskeletal: No Clubbing, No Cyanosis and No Edema
Neuro: Awake, Alert and Oriented
Psych: Calm
Unstable angina -stable after cardiac catheterization. Mid LAD stent placed. Continue dual antiplatelet therapy. Outpatient cardiology follow-up.
Vasovagal syncope -back to baseline now. Does have a history of syncope as a child.
Essential hypertension -continue lisinopril.
Hypothyroidism -continue Synthroid.
Full code
Dispo -medically stable for discharge. Discussed with cardiology. Outpatient follow-up.
32 minutes spent in discharge process.
Anticipated Discharge: Today
Subjective/Interval History
-
Date of Service: October 16, 2023
Patient seen and examined. No complaints.
Objective Data
-
Labs:
Laboratory Results
10/16/23
04:09
WBC 8.1
Hgb 12.9
Hct 36.4 L
Plt Count 269
Sodium 139
Potassium 4.1
Chloride 108 H
Carbon Dioxide 25
BUN 15
Creatinine 0.7
Glucose 85
Calcium 9.7
Vital Signs:
Vital Signs
Temp Pulse Resp BP Pulse Ox
98.1 F 54 20 110/72 98
10/16/23 07:28 10/16/23 08:18 10/16/23 07:28 10/16/23 08:18 10/16/23 07:28
I&O
08/10/16/23 10/17/23
06:59 06:59 06:59
Intake Total 1100 / 1100
Balance 1100 / 1100
Review of Systems
-
History Source: Patient
All other systems: Reviewed and negative
[2023-10-16 10:07] LABS: Glycohemoglobin (HgbA1c) 5.6 % (4.0-5.6)
--- NOTE | 2023-10-16 10:08 | W.DS.TRANS ---
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
-
Discharge Instructions:
Discharge Diagnosis/Procedures Unstable angina, syncope, angioplasty and stent
to Left Anterior Descending artery
Diet Low Cholesterol,Low Fat
Activity As tolerated
Driving Restrictions As prior to admission
Bathing Restrictions None
Other Services Cardiac Rehab
Instructions:
Stand-Alone Forms: DC Instructions- Cath/EP Lab
Changes to Home Medications: No
Discharge Medications:
DC Medications w/original date entered in [employer]
levothyroxine 112 mcg tablet (Synthroid) 112 mcg PO MOTUWETHFRSA 01/21/23
lisinopril 5 mg tablet 5 mg PO DAILY 01/21/23
levothyroxine 112 mcg tablet (Synthroid) 56 mcg PO SMILEY 10/15/23
ticagrelor 90 mg tablet (Brilinta) 90 mg PO BID #180 tabs 10/15/23
aspirin 81 mg chewable tablet 81 mg PO DAILY #0 tabs 10/16/23
atorvastatin 80 mg tablet 80 mg PO QPM #30 tabs 10/16/23
nitroglycerin 0.4 mg sublingual tablet 0.4 mg sublingual Q5-15M PRN chest pain #30 tabs 10/16/23
Home Medication Changes
Pending Results: No
--- NOTE | 2023-10-16 11:15 | PTCARENOTE ---
Assumed care of pt from prev nsg shift; Pt AAOX3, flat affect. Pt w/no c/o CP or SOB. R radial site w/dressing intact w/some purple ecchymosis, but no signs or symptoms of bleeding or hematoma. Pt's RUE w/trace edema, per pt & prev nurse improved
from yesterday. Pt's VS stable w/HR in the 50's & recent BP 135/85. Pt is SB on telemetry monitoring. Pt encouraged to ambulate & D/C plan for today discussed. Pt currently OOB to & verbalized that she will ambulate in the room & halls shortly.
Pt's daughter available to pick her up late this afternoon/evening. No addtl needs at this time. Plan of care ongoing.
[2023-10-16] MEDS: LIPITOR 80 MG PO (16:53)
--- NOTE | 2023-10-16 18:40 | PTCARENOTE ---
Discussed D/C instructions w/pt & her daughter. Pt's IV & agricultural equipment salesperson removed. Pt left via wheelchair w/her personal belongings including cell phone & financial legal assistant.
== END 2023-10-16 18:59 | disposition home or self-care (01) | DRG 322 ==
LOC: IVU 04:33
PROVIDERS: Emergency Medicine; Hospitalist; Student in an Organized Health Care Education/Training Program; ADMITTING PHYSICIAN Internal Medicine; ATTENDING PHYSICIAN Hospitalist; CONSULT PHYSICIAN Internal Medicine; EMERGENCY PHYSICIAN Emergency Medicine; FAMILY PHYSICIAN Family Medicine
PROC: 4A023N7 Measurement of Cardiac Sampling and Pressure, Left Heart, Percutaneous Approach (ICD-10-PCS; 2023-10-15)
PROC: 027034Z Dilation of Coronary Artery, One Artery with Drug-eluting Intraluminal Device, Percutaneous Approach (ICD-10-PCS; 2023-10-15)
PROC: B2111ZZ Fluoroscopy of Multiple Coronary Arteries using Low Osmolar Contrast (ICD-10-PCS; 2023-10-15)
PROC: B240ZZ3 Ultrasonography of Single Coronary Artery, Intravascular (ICD-10-PCS; 2023-10-15)
DX: I25.110 Atherosclerotic heart disease of native coronary artery with unstable angina pectoris (principal); I10 Essential (primary) hypertension; E03.9 Hypothyroidism, unspecified; E78.00 Pure hypercholesterolemia, unspecified; M77.31 Calcaneal spur, right foot; M76.61 Achilles tendinitis, right leg; M54.16 Radiculopathy, lumbar region; Z79.890 Hormone replacement therapy; Z79.899 Other long term (current) drug therapy
CPT/HCPCS: 70450; 71046; 80048; 80053; 80061; 82962; 83036; 84439; 84443; 84484; 85025; 85027; 85347; 85379; 85730; 92978; 93005; 93306; 93458; 93971; 96365; 96366; 99285; C1725; C1753; C1874; C1894; C9600; Q9967

== ENCOUNTER 2023-11-22 18:48 | Emergency (ER) | payer BC, SELFPAY ==
[2023-11-22 18:49] VITALS: BP 169/90
[2023-11-22 19:42] VITALS: BMI 25.7
[2023-11-22 19:44] VITALS: BP 159/89
--- NOTE | 2023-11-22 19:57 | ED.GENMED ---
History of Present Illness
General
Chief Complaint: Chest Pain
Time Seen by Provider: 11/22/23 19:37
History of Present Illness
History of Present Illness:
Patient is a 58-year-old woman history of CAD with recent stent placement on September, hyperlipidemia, hypothyroidism presenting to the emergency department with chest pain. Patient states that for the past 5 days she has been having left sided chest
pain that occurs at rest. She states that is stabbing and sharp pain that radiates to her left breast. It is worse with a deep breath. It occurred nightly but 2 days ago it started develop more frequently. Today she has had 3 episodes. It is
not associated with exertion. It is not positional. No numbness tingling. No fevers or chills. No URI symptoms. No history of blood clots recent travel malignancy or hormone use. This does not feel similar to when she needed her stent. No
recent exercise or heavy lifting. She is currently pain-free. Last episode happened at 5 PM. She does state that she has been having some URI symptoms.
Past History
Past History
ED Past Medical History: Hypothyroidism and Other (Pneumonia)
Social History
Tobacco: Non-smoker
Living: with family
Phy Exam
Physical Exam
Physical Exam:
GENERAL: in no acute distress
HEENT: normocephalic, extraocular movements intact, moist oral mucosa
NECK: normal inspection
RESPIRATORY: no respiratory distress, clear to auscultation bilaterally
CARDIOVASCULAR: regular rate and rhythm
ABDOMEN/: soft, non-distended, non-tender to palpation, no rebound or guarding
EXTREMITIES: non-tender, no edema/swelling
NEUROLOGIC: awake and alert, moves all extremities
SKIN: warm, no rash over the chest
Scores
Heart Score for Chest Pain Patients
STEMI patient?: Not applicable
Course
Orders/Labs/Results
Orders:
Orders
11/22/23 18:50
ECG [Electrocardiogram (*1)] Urgent
Reason for Study: Chest Pain
Cardiology Consult: Unknown
11/22/23 18:51
EKG- Treatment ONCE
11/22/23 19:57
CR Chest - 2 Views Urgent
Comment:
Reason For Exam: chest pain
11/22/23 20:05
Basic Metabolic Panel Urgent
Complete Blood Count/With Diff Urgent
D-Dimer Urgent
Troponin I Urgent
11/22/23 23:00
Troponin I Routine
Abnormal Lab Results
11/22/23
20:05
Absolute Neuts (auto) 8.5 H 10^3/uL
(1.4-6.5)
Absolute Lymphs (auto) 1.1 L 10^3/uL
(1.2-3.4)
Absolute Monos (auto) 0.8 H 10^3/uL
(0.1-0.6)
Neutrophils % 80.3 H %
(42.2-75.2)
Lymphocytes % 9.9 L %
(20.5-51.1)
Calcium 10.5 H mg/dl
(8.4-10.2)
11/22/23 20:05
11/22/23 20:05
Vital Signs
Initial and Last Documented VS:
Initial Vital Signs
Temp Pulse Resp BP Pulse Ox
97.3 F 60 18 169/90 100
11/22/23 18:49 11/22/23 18:49 11/22/23 18:49 11/22/23 18:49 11/22/23 18:49
Last Documented Vital Signs
Temp Pulse Resp BP Pulse Ox
97.3 F 54 12 164/87 100
11/22/23 18:49 11/22/23 20:15 11/22/23 20:15 11/22/23 20:00 11/22/23 20:15
MDM/Problems Addressed
Differential Diagnosis Includes:
Patient is a 58-year-old woman with history of CAD with recent stent, hyperlipidemia, hypothyroidism presenting to the emergency department with episodic left-sided chest pain that is pleuritic and last about 5 minutes. Vitals here are notable for
a heart rate in the 60s and exam does not show any chest wall tenderness or rash. Unclear etiology but will rule out ACS as well as PE. Could also be pleurisy from viral infection. History and exam not consistent with pneumonia. Doubt
pneumothorax. Will check blood work including troponin and D-dimer. Will obtain chest x-ray. EKG per my interpretation without any ST changes
*Critical Care Note
Total Time (30-74mins, 75-104mins- exclusive of procedures): Not Applicable
Update Note
Update Note:
On reevaluation patient resting comfortably. Blood work is unremarkable. Will obtain delta troponin. If everything is unremarkable will discharge with PCP follow-up
ED Attending Note
-
Portions of this chart may have been created with voice recognition software.� Occasional wrong word or��sound alike� substitutions may have occurred due to the inherent limitations of voice recognition software.
Discharge Plan
Departure
Discharge Problem:
Chest pain
Instructions: Chest Pain PCP Follow Up
Prescriptions:
No Action
lisinopril 5 mg Tablet
5 mg PO DAILY
levothyroxine [Synthroid] 112 mcg Tablet
112 mcg PO MOTUWETHFRSA
levothyroxine [Synthroid] 112 mcg Tablet
56 mcg PO SMILEY
Brilinta 90 mg Tablet
90 mg PO BID Qty: 180 3RF
atorvastatin 80 mg Tablet
80 mg PO QPM Qty: 30 0RF
aspirin 81 mg Tablet,Chewable
81 mg PO DAILY Qty: 0 0RF
nitroglycerin 0.4 mg tablet, sublingual
0.4 mg sublingual Q5-15M PRN (Reason: chest pain) Qty: 30 0RF
Referrals:
Ginny Celeste MD [Family Provider] -
Activity Restrictions/Additional Instructions:
You were evaluated in the Emergency Department today for chest pain. Your evaluation has shown no signs of medical conditions requiring emergent intervention at this time, however we recommend that you follow up with your primary care physician or
your machine bookkeeper as soon as possible for further testing as an outpatient.
Please schedule an appointment for follow up with your primary care physician as soon as possible.
Return to the Emergency Department if you experience worsening or uncontrolled chest pain, shortness of breath, light headedness, feeling faint, nausea, vomiting, or any other concerning symptoms.
Thank you for choosing us for your care.
Interventions
Interventions:
*Risk Screen - Suicide Last Done: 11/22/23 18:49
*General Assessment Last Done: 11/22/23 18:49
*Neglect/Abuse Screening Last Done: 11/22/23 18:49
ED- Fall Risk Assessment Last Done: 11/22/23 19:42
*ED COVID-19 Vaccine History Last Done: 11/22/23 19:42
ED- Cardiac Assessment Last Done: 11/22/23 19:41
Discharge Date and Time
Print Language: [place] ISLAND[place]
[2023-11-22 20:00] VITALS: BP 164/87
[2023-11-22 20:12] LABS: % Basophils 0.5 % (0-2); % Eosinophils 1.1 % (0-6); % Immature Granulocytes 0.4 % (0-0.5); % Lymphocytes 9.9 % (20.5-51.1); % Monocytes 7.8 % (1.7-9.3); % Neutrophils 80.3 % (42.2-75.2); Absolute Basophils 0.1 10^3/uL (0-0.2); Absolute Eosinophils 0.1 10^3/uL (0-0.7); Absolute Lymphocytes 1.1 10^3/uL (1.2-3.4); Absolute Monocytes 0.8 10^3/uL (0.1-0.6); Absolute Neutrophils 8.5 10^3/uL (1.4-6.5); Hematocrit 39.5 % (37.0-47.0); Hemoglobin 13.8 g/dL (12.0-16.0); Mean Corp Hgb Conc. 34.9 g/dL (33.0-37.0); Mean Corpuscular Hgb 30.7 pg (27.0-31.0); Mean Corpuscular Volume 87.8 fL (81.0-99.0); Mean Platelet Volume 10.4 fL (7.4-10.4); Nucleated Red Blood Cells % 0 %; Platelet Count 284 10^3/uL (130-400); Red Cell Dist. Width 12.6 % (11.5-14.5); White Blood Cell Count 10.6 10^3/uL (4.8-10.8)
[2023-11-22 20:29] LABS: D-Dimer < 0.27 ug/mlFEU (0.00-0.50)
[2023-11-22 20:45] LABS: Troponin I < 0.012 ng/ml
[2023-11-22 20:54] LABS: Blood Urea Nitrogen 11 mg/dl (7-17); Calcium 10.5 mg/dl (8.4-10.2); Carbon Dioxide 26 mmol/L (22-30); Chloride 103 mmol/L (98-107); Estimated Creatinine Clearance 83 ml/min; Glucose 95 mg/dl (70-99); Potassium 4.3 mmol/L (3.5-5.1); Sodium 142 mmol/L (135-145); eGFR > 60.00
[2023-11-22 21:23] VITALS: BP 137/86
[2023-11-22 23:05] VITALS: BP 151/91
[2023-11-22 23:38] LABS: Troponin I < 0.012 ng/ml
== END 2023-11-22 23:58 | disposition home or self-care (01) ==
LOC: EMR 18:48
PROVIDERS: EMERGENCY PHYSICIAN Student in an Organized Health Care Education/Training Program; FAMILY PHYSICIAN Family Medicine
DX: R07.89 Other chest pain (principal); I25.10 Atherosclerotic heart disease of native coronary artery without angina pectoris; E78.5 Hyperlipidemia, unspecified; E03.9 Hypothyroidism, unspecified; Z95.5 Presence of coronary angioplasty implant and graft; Z87.01 Personal history of pneumonia (recurrent); Z79.82 Long term (current) use of aspirin; Z98.890 Other specified postprocedural states
CPT/HCPCS: 99283; 71046; 80048; 84484; 85025; 85379; 93005

== ENCOUNTER → 2023-12-03 09:28 | Outpatient (REF) | payer BC, SELFPAY | LOC: RAD 09:28 | PROVIDERS: ATTENDING PHYSICIAN Student in an Organized Health Care Education/Training Program; FAMILY PHYSICIAN Family Medicine | DX: I73.9 Peripheral vascular disease, unspecified (principal) | CPT/HCPCS: 93923 ==

== ENCOUNTER 2023-12-15 20:12 | Emergency (ER) | payer BC, SELFPAY ==
[2023-12-15 20:14] VITALS: BP 135/90
--- NOTE | 2023-12-15 20:34 | EDRN ---
Pt has river a cold leg and foot since early September. Pt had rei done and has been seen by vascular. Pt got script for angiogram R leg and was told if she could not feel her foot or saw anything bulging out of her leg to go to ED because of concern
for aneurysm. Leg still cold and has gotten worse since Saturday and pt notice something popped out on lateral R ankle yesterday. Pt says area looks better now.
[2023-12-15 20:41] VITALS: BP 141/85; BMI 24.4
[2023-12-15 21:00] VITALS: BP 129/82
[2023-12-15 21:43] LABS: % Basophils 0.7 % (0-2); % Immature Granulocytes 0.4 % (0-0.5); % Lymphocytes 9.3 % (20.5-51.1); % Monocytes 6.8 % (1.7-9.3); % Neutrophils 81.8 % (42.2-75.2); Absolute Basophils 0.1 10^3/uL (0-0.2); Absolute Eosinophils 0.1 10^3/uL (0-0.7); Absolute Monocytes 0.7 10^3/uL (0.1-0.6); Absolute Neutrophils 8.6 10^3/uL (1.4-6.5); Hematocrit 38.5 % (37.0-47.0); Hemoglobin 13.5 g/dL (12.0-16.0); Mean Corp Hgb Conc. 35.1 g/dL (33.0-37.0); Mean Corpuscular Volume 88.5 fL (81.0-99.0); Mean Platelet Volume 10.7 fL (7.4-10.4); Nucleated Red Blood Cells % 0 %; Platelet Count 285 10^3/uL (130-400); Red Blood Cell Count 4.35 10^6/uL (4.20-5.40); Red Cell Dist. Width 12.6 % (11.5-14.5); White Blood Cell Count 10.5 10^3/uL (4.8-10.8)
[2023-12-15 21:56] LABS: ALT (SGPT) 41 U/L (0-35); AST (SGOT) 39 U/L (14-36); Albumin 4.9 g/dl (3.5-5.0); Alkaline Phosphatase 88 U/L (38-126); Blood Urea Nitrogen 24 mg/dl (7-17); Calcium 10.1 mg/dl (8.4-10.2); Carbon Dioxide 26 mmol/L (22-30); Chloride 102 mmol/L (98-107); Estimated Creatinine Clearance 65 ml/min; Glucose 101 mg/dl (70-99); Potassium 4.2 mmol/L (3.5-5.1); Sodium 142 mmol/L (135-145); Total Bilirubin 0.4 mg/dl (0.2-1.3); Total Protein 7.5 g/dl (6.3-8.2); eGFR > 60.00
[2023-12-15 22:00] VITALS: BP 125/78
[2023-12-15 23:00] VITALS: BP 122/71
[2023-12-15 23:00] LABS: Erythrocyte Sed Rate 13 mm/hour (0-20)
[2023-12-15 23:12] LABS: C-Reactive Protein < 5.00 mg/L (0.0-10.00)
--- NOTE | 2023-12-15 23:33 | ED.GENMED ---
History of Present Illness
General
Chief Complaint: Vascular Symptoms
Source: patient and spouse
Exam Limitations: none
Time Seen by Provider: 12/15/23 20:47
History of Present Illness
History of Present Illness:
58-year-old female presents with a cold right leg. She states it has been ongoing since September and she saw vascular surgery. They did advise her to go to the hospital if she were ever get any kind of 'bulging' or changes. She feels like there is
more mottling noted and there was a bulge to the lateral aspect of the right ankle. Patient is scheduled to have a CT angiogram performed but has not had it. She does state that she has had ABIs. No fevers. No pain
Past History
Past History
ED Past Medical History: Hypothyroidism and Other (Pneumonia)
Social History
Tobacco: Non-smoker
Living: with family
Phy Exam
Physical Exam
Physical Exam:
CONSTITUTIONAL Patient alert and oriented to person, place and time. Well-appearing. Vital signs reviewed.
HEAD atraumatic, normocephalic.
EYES eyelids normal to inspection, Extraocular muscles intact, Conjunctiva normal, Sclera normal.
NECK normal range of motion, Trachea midline, no jugular venous distention.
RESPIRATORY CHEST No respiratory distress noted, Chest expansion equal
ABDOMEN abdomen nontender, Bowel sounds normal. No distention.
BACK normal inspection, no obvious deformities
UPPER EXTREMITY range of motion normal, Motor strength normal, no cyanosis, no edema.
LOWER EXTREMITY range of motion normal, Motor strength normal, no edema. She does have a normal dorsalis pedis pulse bilaterally but the right lower extremity is cooler than the right starting about the area at the midportion of the lower
extremity on the right. There is also slight discoloration but is not cyanotic. No pulsatile mass in the popliteal area.
NEURO Speech normal, No focal motor deficits, Ramona coma scale 15, Memory normal, Cranial Nerves intact to screening exam.
SKIN skin warm, dry, and normal in color.
Course
Orders/Labs/Results
Orders:
Orders
12/15/23 21:23
CT Angio Lower Ext W/Wo Iv Contrast [CT Lower Ext Angio W/wo Iv Con] Urgent
Comment:
Reason For Exam: cold RLE
12/15/23 21:25
C-Reactive Protein Urgent
Comment: ADD ON
Complete Blood Count/With Diff Urgent
Comprehensive Metabolic Panel Urgent
Erythrocyte Sed Rate Urgent
Comment: ADD ON
12/15/23 22:15
Add On- LAB Urgent
Tests Added?: CRP, ESR
Abnormal Lab Results
12/15/23
21:25
MPV 10.7 H fL
(7.4-10.4)
Absolute Neuts (auto) 8.6 H 10^3/uL
(1.4-6.5)
Absolute Lymphs (auto) 1.0 L 10^3/uL
(1.2-3.4)
Absolute Monos (auto) 0.7 H 10^3/uL
(0.1-0.6)
Neutrophils % 81.8 H %
(42.2-75.2)
Lymphocytes % 9.3 L %
(20.5-51.1)
BUN 24 H mg/dl
(7-17)
Glucose 101 H mg/dl
(70-99)
AST 39 H U/L
(14-36)
ALT 41 H U/L
(0-35)
12/15/23 21:25
12/15/23 21:25
Vital Signs
Initial and Last Documented VS:
Initial Vital Signs
Temp Pulse Resp BP Pulse Ox
98.3 F 66 18 135/90 99
12/15/23 20:14 12/15/23 20:14 12/15/23 20:14 12/15/23 20:14 12/15/23 20:14
Last Documented Vital Signs
Temp Pulse Resp BP Pulse Ox
98.3 F 71 16 125/78 97
12/15/23 20:14 12/15/23 22:00 12/15/23 20:41 12/15/23 22:00 12/15/23 22:00
MDM/Problems Addressed
MDM/Problems Addressed:
Cool lower extremity
*Radiology
Radiology exam reviewed: radiology read reviewed
*Pulse Oximetry
Patient hypoxic: no
*Critical Care Note
Total Time (30-74mins, 75-104mins- exclusive of procedures): Not Applicable
Data Reviewed
Source: patient and significant other
Patient Management
Escalation/DeEscalation of care consider admission/obs:
Patient is followed by vascular surgery. CTA does not show any obstruction or acute findings. Unclear etiology but she is not cyanotic and symptoms have been ongoing since September. Okay for outpatient follow-up as planned
ED Attending Note
-
Portions of this chart may have been created with voice recognition software.� Occasional wrong word or��sound alike� substitutions may have occurred due to the inherent limitations of voice recognition software.
Discharge Plan
Departure
Patient Disposition: Home (Routine Discharge)
Date of Disposition: 12/15/23
Time of Disposition: 23:37
Patient with high blood pressure during this ER visit?: No
Discharge Problem:
Cool Lower extremity
Prescriptions:
No Action
lisinopril 5 mg Tablet
5 mg PO DAILY
levothyroxine [Synthroid] 112 mcg Tablet
112 mcg PO MOTUWETHFRSA
levothyroxine [Synthroid] 112 mcg Tablet
56 mcg PO SMILEY
Brilinta 90 mg Tablet
90 mg PO BID Qty: 180 3RF
aspirin 81 mg Tablet,Chewable
81 mg PO DAILY Qty: 0 0RF
nitroglycerin 0.4 mg tablet, sublingual
0.4 mg sublingual Q5-15M PRN (Reason: chest pain) Qty: 30 0RF
Referrals:
Checo Khalil DO [Family Provider] -
Activity Restrictions/Additional Instructions:
Cool lower extremity
Please see your doctor in follow-up in the next 3 to 5 days. Return immediately for worsening symptoms, motor weakness, discoloration of the foot, or any other concerns.
Interventions
Interventions:
*Risk Screen - Suicide Last Done: 12/15/23 20:32
*General Assessment Last Done: 12/15/23 20:14
*Neglect/Abuse Screening Last Done: 12/15/23 20:32
*ED COVID-19 Vaccine History Last Done: 12/15/23 20:32
ED- Cardiac Assessment Last Done: 12/15/23 20:43
ED- Pulmonary Assessment Last Done: 12/15/23 20:43
ED-Peripheral Vascular Assessment Last Done: 12/15/23 20:43
ED-Skin Assessment Last Done: 12/15/23 20:43
Discharge Date and Time
Print Language: GREENLANDIC
== END 2023-12-16 00:05 | disposition home or self-care (01) ==
LOC: EMR 20:12
PROVIDERS: EMERGENCY PHYSICIAN Emergency Medicine; FAMILY PHYSICIAN Family Medicine
DX: R20.8 Other disturbances of skin sensation (principal)
CPT/HCPCS: 99284; 73706; 80053; 85025; 85652; 86140; Q9967

== ENCOUNTER 2024-03-20 21:36 | Emergency (ER) | payer BC, SELFPAY ==
[2024-03-20 21:42] VITALS: BP 133/72
[2024-03-20 22:09] LABS: % Basophils 0.7 % (0-2); % Eosinophils 2.8 % (0-6); % Immature Granulocytes 0.2 % (0-0.5); % Lymphocytes 17.8 % (20.5-51.1); % Monocytes 7.9 % (1.7-9.3); % Neutrophils 70.6 % (42.2-75.2); Absolute Eosinophils 0.2 10^3/uL (0-0.7); Absolute Monocytes 0.5 10^3/uL (0.1-0.6); Hematocrit 41.8 % (37.0-47.0); Hemoglobin 13.9 g/dL (12.0-16.0); Mean Corp Hgb Conc. 33.3 g/dL (33.0-37.0); Mean Corpuscular Hgb 30.7 pg (27.0-31.0); Mean Corpuscular Volume 92.3 fL (81.0-99.0); Mean Platelet Volume 10.4 fL (7.4-10.4); Nucleated Red Blood Cells % 0 %; Platelet Count 270 10^3/uL (130-400); Red Blood Cell Count 4.53 10^6/uL (4.20-5.40); Red Cell Dist. Width 12.2 % (11.5-14.5); White Blood Cell Count 5.7 10^3/uL (4.8-10.8)
[2024-03-20 22:25] LABS: ALT (SGPT) 37 U/L (0-35); AST (SGOT) 38 U/L (14-36); Albumin 4.6 g/dl (3.5-5.0); Alkaline Phosphatase 90 U/L (38-126); Blood Urea Nitrogen 13 mg/dl (7-17); Calcium 9.6 mg/dl (8.4-10.2); Carbon Dioxide 31 mmol/L (22-30); Chloride 99 mmol/L (98-107); Glucose 125 mg/dl (70-99); Lipase 142 U/L (23-300); Potassium 4.4 mmol/L (3.5-5.1); Sodium 139 mmol/L (135-145); Total Bilirubin 0.6 mg/dl (0.2-1.3); eGFR > 60.00
[2024-03-21 00:29] VITALS: BP 142/91
[2024-03-21 00:33] VITALS: BMI 23.5
[2024-03-21] MEDS: TYLENOL 1000 MG PO (00:39)
[2024-03-21 00:51] LABS: Urine Albumin Negative (Neg - Trace); Urine Bilirubin Negative (Negative); Urine Character Clear (Clear); Urine Color Yellow; Urine Glucose Negative (Negative); Urine Ketone Negative (Negative); Urine Leukocyte Trace (Negative); Urine Nitrite Negative (Negative); Urine Occult Blood 1+ (Negative); Urine Specific Gravity 1.015 (<1.030); Urine Urobilinogen Negative (Neg - 1+); Urine pH 6.5 (5.0-9.0)
--- NOTE | 2024-03-21 00:57 | ED.GENMED ---
History of Present Illness
General
Chief Complaint: Abdominal Pain
Source: patient, previous radiology exam (Abdominal ultrasound January 2021 showing 2 mobile gallstones without evidence of cholecystitis. Echogenic left hepatic lobe lesion measures up to 1.9 cm. MRI of the abdomen February 2021 showing hepatic
and angioma measuring 10 mm.) and previous hospital records (Hospitalization September 2023 for chest pain. PTCA with stent to the mid LAD.)
Exam Limitations: none
Time Seen by Provider: 03/21/24 00:00
Nursing documentation reviewed up to this point in time: agreed with
History of Present Illness
History of Present Illness:
This is a 59-year-old woman who has history of CAD status post PTCA with stent to the mid LAD September 2023. History of hyperlipidemia, hypothyroidism.
She presents with 4-day history of right upper quadrant pain that began mildly 4 days ago but much worse tonight, much worse tonight while pulling her trash cans up the driveway. She denies insightful injury but does note that pain is worse when
she is pulling or lifting. She recently recovered from an episode of bronchitis which resolved 1 week ago. She has had no recurrent cough, no shortness of breath. Right upper quadrant pain is not worsened with deep breath. She denies back pain
or flank pain, no fever nor chills. No dysuria urgency and or hematuria. She has not noticed a rash. She denies nausea nor vomiting, no diarrhea or constipation. No change in appetite and pain is not worsened nor improved with meals.
Pain is not worsened when she sits up nor twists her torso but is definitely worse with lifting/pulling especially lifting/pulling with her right arm.
She has not taken anything for discomfort.
Upon review of records, abdominal ultrasound 2020 showing 2 large mobile gallstones, echogenic left hepatic lobe lesion for which she had follow-up MRI of the abdomen February 2021 showing a benign-appearing hepatic hemangioma at 10 mm.
Past History
Past History
ED Past Medical History: CAD, Hypercholesterolemia, Hypothyroidism and Other (Pneumonia; incidental gallstones, hepatic hemangioma)
ED Past Surgical History: Cardiac (PTCA with stent to the mid LAD September 2023)
Social History
Tobacco: Non-smoker
Alcohol: None
Personal:
Living: with family
Employment: Retired
Family History
Family History: Other (Noncontributory)
Phy Exam
Physical Exam
Physical Exam:
GENERAL: 59-year-old woman appears her stated age, bright and alert, pleasant, appears in no acute distress.
EYE: anicteric
NECK: Supple, nontender, no meningismus, no significant adenopathy.
ENT: oral mucosa is moist. No rhinorrhea.
CARDIAC: Regular rate and rhythm. no murmur. There is very minimal tenderness right anterior distal costal margin. Palpation seems to exactly reproduce patient's pain complaint. There is no crepitus nor palpable bony abnormality.
LUNGS: Clear breath sounds bilaterally, no acute respiratory distress, no wheezes/rales/rhonchi
ABDOMEN: Soft, nondistended, mild tenderness palpation right upper quadrant, right lateral upper flank, no r/g, no cvat. normoactive BS. No rash appreciated. Patient able to sit up without difficulty and without appreciable pain.
NEUROLOGICAL: Alert and oriented x3, no focal neuro deficits. Gait is earl and steady.
SKIN: Warm and dry, normal color, skin intact. No rash.
MUSCULOSKELETAL: No C/C/E. peripheral pulses are full and equal b/l. No palpable tenderness.
PSYCH: Normal and appropriate interaction.
Course
Orders/Labs/Results
Orders:
Orders
03/20/24 21:47
Electrocardiogram (*1) Urgent
Reason for Study: Abdominal Pain
EKG- Treatment ONCE
IV Insert/Care/Rem.- Treatment PRN
03/20/24 21:54
Complete Blood Count/With Diff Urgent
Comprehensive Metabolic Panel Urgent
Lipase Urgent
03/21/24 00:14
Acetaminophen [Tylenol] 1,000 mg PO NOW STA
US Abdomen Complete/Upper Urgent
Comment:
Reason For Exam: RUQ pain x 4 days-worse tonight
03/21/24 00:15
CR Chest - 2 Views Urgent
Comment:
Reason For Exam: RUQ,R ant costal margin pain x 4 d, recent URI
03/21/24 00:30
Urinalysis Reflex To Culture Urgent
Date Specimen was Collected: 03/21/24
Time Specimen was Collected: 00:29
Urine Microscopic Reflex Cult Urgent
Abnormal Lab Results
03/20/24 03/21/24
21:54 00:30
Absolute Lymphs (auto) 1.0 L 10^3/uL
(1.2-3.4)
Lymphocytes % 17.8 L %
(20.5-51.1)
Carbon Dioxide 31 H mmol/L
(22-30)
Glucose 125 H mg/dl
(70-99)
AST 38 H U/L
(14-36)
ALT 37 H U/L
(0-35)
Ur Occult Blood Reflex 1+ A
(Negative)
Leukocyte Esterase Rfl Trace A
(Negative)
Urine RBC 11-15 A /HPF
(0-2)
Urine Bacteria (Reflex) Few A
(Negative)
03/20/24 21:54
03/20/24 21:54
Vital Signs
Initial and Last Documented VS:
Initial Vital Signs
Temp Pulse Resp BP Pulse Ox
98.5 F 56 18 133/72 97
03/20/24 21:42 03/20/24 21:42 03/20/24 21:42 03/20/24 21:42 03/20/24 21:42
Last Documented Vital Signs
Temp Pulse Resp BP Pulse Ox
98.5 F 56 18 121/79 96
03/20/24 21:42 03/20/24 21:42 03/20/24 21:42 03/21/24 01:15 03/21/24 01:30
MDM/Problems Addressed
Differential Diagnosis Includes:
Concern for abdominal wall muscle strain, cholecystitis, pyelonephritis, pleural effusion, pneumonia, ureteric stone is much less likely. As patient chronically maintained on Plavix/aspirin, although denies insightful injury nor fall must consider
straining injury/hematoma.
Pain is not pleuritic in nature, she has had no associated cough nor shortness of breath nor palpitations and denies chest pain. Thromboembolism/PE is unlikely.
No associated chest pain and symptoms are clearly markedly different than the chest pain she experienced in September. EKG is unremarkable and unchanged from previous. No evidence of ACS.
Labs thus far unremarkable with normal white blood cell count, normal H&H.
Chemistries are unremarkable save for very minimally elevated LFTs, similar and unchanged from previous.
Will check urinalysis. Will check chest x-ray as well as abdominal ultrasound.
Will trial Tylenol for pain.
As patient maintained on Plavix and aspirin, will avoid NSAIDs.
Chronic conditions affecting care: CAD and Other (Known hepatic hemangioma 10 mm in size noted on MRI of the abdomen February 2021; known gallstones noted on abdominal ultrasound January 2021)
Acute Exacerbation and/or Progression of Chronic Illness: CAD
*Radiology
Radiology exam reviewed: preliminary read by ED provider (Chest x-ray is unremarkable, clear lung schulte, normal heart size, similar and unchanged from previous.) and radiology read reviewed (Abdominal ultrasound shows cholelithiasis with a
completely stone filled gallbladder. Normal gallbladder wall, no pericholecystic fluid, negative Potts sign, no ductal dilatation and common bile duct normal at 3 mm. 1.2 cm hemangioma right lobe of the liver. Renal cyst on the right otherwise
kid)
*Pulse Oximetry
Patient hypoxic: no
*EKG
Interpreted by ED Provider?: Yes
Interpretation: normal
Comparison EKG: no changes (Unchanged from previous October 2023)
Rate: normal
Rhythm: sinus
[place]: normal axis
Interval: normal interval
QRS Pattern: normal QRS
Ischemia: no ischemia
*Critical Care Note
Total Time (30-74mins, 75-104mins- exclusive of procedures): Not Applicable
Update Note
Update Note:
02:15
Patient feeling improved after dose of Tylenol.
Chest x-ray is unremarkable.
Urinalysis shows 11-15 RBCs, trace leukocyte Estrace positive but only 0-2 WBCs, few bacteria. Greater than 30 squamous epithelial cells�concerning for contaminated specimen. She has had no UTI symptoms and urinalysis is not consistent with UTI.
Abdominal ultrasound shows cholelithiasis but no evidence of cholecystitis, no evidence of ductal dilatation. Benign-appearing right renal cyst otherwise kidneys appear unremarkable bilaterally.
I suspect gallstones are an incidental finding and has known incidental gallstones on previous imaging over the past several years.
Reassuring that pain has improved with Tylenol. Recommend she continue Tylenol, could also trial topical lidocaine patch.
Due to current ultrasound showing cholelithiasis with completely stone filled gallbladder, recommend follow-up with general surgery for recheck and further evaluation. Follow-up with PCP as well.
Return precautions discussed.
ED Attending Note
-
Portions of this chart may have been created with voice recognition software.� Occasional wrong word or��sound alike� substitutions may have occurred due to the inherent limitations of voice recognition software.
Discharge Plan
Departure
Patient Disposition: Home (Routine Discharge)
Date of Disposition: 03/21/24
Time of Disposition: 02:24
Patient with high blood pressure during this ER visit?: No
Discharge Problem:
Abdominal pain, RUQ, Cholelithiases
Instructions: Gallstones ED, Abdominal Pain
Prescriptions:
No Action
lisinopril 5 mg Tablet
5 mg PO DAILY
levothyroxine [Synthroid] 112 mcg Tablet
112 mcg PO MOTUWETHFRSA
levothyroxine [Synthroid] 112 mcg Tablet
56 mcg PO SMILEY
Brilinta 90 mg Tablet
90 mg PO BID Qty: 180 3RF
aspirin 81 mg Tablet,Chewable
81 mg PO DAILY Qty: 0 0RF
nitroglycerin 0.4 mg tablet, sublingual
0.4 mg sublingual Q5-15M PRN (Reason: chest pain) Qty: 30 0RF
Referrals:
Checo Khalil DO [Family Provider] - Call in 1-3 days for appt
Lars Hill MD [Active] - Call in 1-3 days for appt
Interventions
Interventions:
*Risk Screen - Suicide Last Done: 03/20/24 21:42
*General Assessment Last Done: 03/21/24 00:33
*Neglect/Abuse Screening Last Done: 03/20/24 21:42
ED- Fall Risk Assessment Last Done: 03/21/24 00:33
*ED COVID-19 Vaccine History Last Done: 03/20/24 21:45
*Nursing Disposition Last Done: 03/21/24 02:20
HW-Bqxjxc-Sjkdkewjgh Assessment Last Done: 03/21/24 00:33
Discharge Date and Time
Discharge Date/Time: 03/21/24 02:20
Print Language: TUNISIAN
[2024-03-21 01:15] VITALS: BP 121/79
[2024-03-21 01:28] LABS: Urine Squamous Cell >30 /LPF (Few)
[2024-03-21 01:29] LABS: Urine Bacteria Few (Negative); Urine White Cell 0-2 /HPF (0-5)
== END 2024-03-21 02:20 | disposition home or self-care (01) ==
LOC: EMR 21:36
PROVIDERS: Emergency Medicine; EMERGENCY PHYSICIAN Emergency Medicine; FAMILY PHYSICIAN Family Medicine
DX: R10.11 Right upper quadrant pain (principal); K80.20 Calculus of gallbladder without cholecystitis without obstruction; I25.10 Atherosclerotic heart disease of native coronary artery without angina pectoris; E78.00 Pure hypercholesterolemia, unspecified; E03.9 Hypothyroidism, unspecified
CPT/HCPCS: 99284; 71046; 76700; 80053; 81003; 81015; 83690; 85025; 93005

== ENCOUNTER → 2024-05-12 10:10 | Outpatient (REF) | payer BC, SELFPAY | LOC: EMG 10:10 | PROVIDERS: ATTENDING PHYSICIAN Physician Assistant | DX: M79.604 Pain in right leg (principal); M54.16 Radiculopathy, lumbar region; R20.2 Paresthesia of skin | CPT/HCPCS: 95886; 95910 ==

== ENCOUNTER → 2024-07-07 17:08 | Outpatient (REF) | payer BC, SELFPAY | LOC: WDC 17:08 | PROVIDERS: ATTENDING PHYSICIAN Obstetrics & Gynecology Gynecology; FAMILY PHYSICIAN Physician Assistant Medical | DX: Z12.31 Encounter for screening mammogram for malignant neoplasm of breast (principal) | CPT/HCPCS: 77063; 77067 ==

== ENCOUNTER 2024-07-31 19:04 | Emergency (ER) | payer BC, SELFPAY ==
[2024-07-31 19:15] VITALS: BP 147/88; BMI 22.7
--- NOTE | 2024-07-31 20:34 | ED.GENMED ---
History of Present Illness
<JOSE C Byrd Last Filed: 07/31/24 20:35>
General
Chief Complaint: Chest Problem
Source: patient
Time Seen by Provider: 07/31/24 20:11
History of Present Illness
History of Present Illness:
59-year-old female with history of coronary artery disease presents with several months worth of left-sided chest discomfort. Starts in the lateral chest radiates to the back of her arm and to the front of her chest. She occasionally feels short
of breath. Pain is slightly pleuritic in nature. There is no associated numbness or tingling. She denies abdominal pain nausea or vomiting. No hemoptysis. No cough or fever. No known injury. No other complaints at this time
Past History
<JOSE C Byrd Last Filed: 07/31/24 20:35>
Past History
ED Past Medical History: CAD, Hypercholesterolemia, Hypothyroidism and Other (Pneumonia; incidental gallstones, hepatic hemangioma)
ED Past Surgical History: Cardiac (PTCA with stent to the mid LAD September 2023)
Social History
Tobacco: Non-smoker
Alcohol: None
Personal:
Living: with family
Employment: Retired
Family History
Family History: Other (Noncontributory)
Phy Exam
<JOSE C Byrd Last Filed: 07/31/24 20:35>
Physical Exam
Physical Exam:
General: Well-appearing female no acute respiratory distress
HEENT: Normocephalic atraumatic
Heart: Regular rate and rhythm
Lungs: Clear no wheeze
Abdomen is soft nontender nondistended no guarding or rebound
Extremities: No cyanosis
Course
<JOSE C Byrd Last Filed: 07/31/24 20:35>
Orders/Labs/Results
Orders:
Orders
07/31/24 19:05
EKG [Electrocardiogram (*1)] Urgent
Reason for Study: Chest Pain
EKG- Treatment ONCE
07/31/24 19:07
Electrocardiogram (*1) Urgent
Reason for Study: Chest Pain
EKG- Treatment ONCE
07/31/24 20:31
CT Chest PE Study Urgent
Comment:
Reason For Exam: left chest pain
07/31/24 21:00
Complete Blood Count/With Diff Urgent
Comprehensive Metabolic Panel Urgent
Troponin I Urgent
Abnormal Lab Results
07/31/24
21:00
MCH 31.5 H pg
(27.0-31.0)
Absolute Neuts (auto) 6.6 H 10^3/uL
(1.4-6.5)
Absolute Lymphs (auto) 1.1 L 10^3/uL
(1.2-3.4)
Absolute Monos (auto) 0.8 H 10^3/uL
(0.1-0.6)
Lymphocytes % 12.8 L %
(20.5-51.1)
BUN 23 H mg/dl
(7-17)
Calcium 10.4 H mg/dl
(8.4-10.2)
07/31/24 21:00
07/31/24 21:00
Vital Signs
Initial and Last Documented VS:
Initial Vital Signs
Temp Pulse Resp BP Pulse Ox
98.4 F 68 18 147/88 99
07/31/24 19:15 07/31/24 19:15 07/31/24 19:15 07/31/24 19:15 07/31/24 19:15
Last Documented Vital Signs
Temp Pulse Resp BP Pulse Ox
98.4 F 56 14 90/67 100
07/31/24 19:15 07/31/24 22:40 07/31/24 22:40 07/31/24 22:39 07/31/24 22:40
<BELLO Sandoval - Last Filed: 07/31/24 23:52>
Orders/Labs/Results
Orders:
Orders
07/31/24 19:05
EKG [Electrocardiogram (*1)] Urgent
Reason for Study: Chest Pain
EKG- Treatment ONCE
07/31/24 19:07
Electrocardiogram (*1) Urgent
Reason for Study: Chest Pain
EKG- Treatment ONCE
07/31/24 20:31
CT Chest PE Study Urgent
Comment:
Reason For Exam: left chest pain
07/31/24 21:00
Complete Blood Count/With Diff Urgent
Comprehensive Metabolic Panel Urgent
Troponin I Urgent
Abnormal Lab Results
07/31/24
21:00
MCH 31.5 H pg
(27.0-31.0)
Absolute Neuts (auto) 6.6 H 10^3/uL
(1.4-6.5)
Absolute Lymphs (auto) 1.1 L 10^3/uL
(1.2-3.4)
Absolute Monos (auto) 0.8 H 10^3/uL
(0.1-0.6)
Lymphocytes % 12.8 L %
(20.5-51.1)
BUN 23 H mg/dl
(7-17)
Calcium 10.4 H mg/dl
(8.4-10.2)
07/31/24 21:00
07/31/24 21:00
Vital Signs
Initial and Last Documented VS:
Initial Vital Signs
Temp Pulse Resp BP Pulse Ox
98.4 F 68 18 147/88 99
07/31/24 19:15 07/31/24 19:15 07/31/24 19:15 07/31/24 19:15 07/31/24 19:15
Last Documented Vital Signs
Temp Pulse Resp BP Pulse Ox
98.4 F 56 14 90/67 100
07/31/24 19:15 07/31/24 22:40 07/31/24 22:40 07/31/24 22:39 07/31/24 22:40
<Guero Singh PA-C - Last Filed: 07/31/24 20:35>
MDM/Problems Addressed
Differential Diagnosis Includes:
Left chest pain. Consider musculoskeletal pain versus PE versus pneumothorax versus radiculopathy
Patient was due for outpatient CT of her chest in [address] of the chest today. EKG labs pending.
<BELLO Sandoval - Last Filed: 07/31/24 23:52>
MDM/Problems Addressed
Differential Diagnosis Includes:
Left chest pain. Consider musculoskeletal pain versus PE versus pneumothorax versus radiculopathy
Patient was due for outpatient CT of her chest in [address] of the chest today. EKG labs pending.
<BELLO Sandoval - Last Filed: 07/31/24 23:52>
*Radiology
Radiology exam reviewed: radiology read reviewed
*Pulse Oximetry
Patient hypoxic: no
*EKG
Interpreted by ED Provider?: Yes
Heart Rate: 71
Rate: normal
Rhythm: sinus
*Critical Care Note
Total Time (30-74mins, 75-104mins- exclusive of procedures): Not Applicable
<BELLO Sandoval - Last Filed: 07/31/24 23:52>
Update Note
Update Note:
Received signout on patient patient's CAT scan is negative for acute findings troponins negative patient is stable here with stable vital signs in no acute distress no clear diagnosis for pain however discussed with patient close outpatient
follow-up. s/s have been since October, no SOB.
ED Attending Note
<Guero Singh PA-C - Last Filed: 07/31/24 20:35>
-
Portions of this chart may have been created with voice recognition software.� Occasional wrong word or��sound alike� substitutions may have occurred due to the inherent limitations of voice recognition software.
Discharge Plan
Departure
Patient Disposition: Home (Routine Discharge)
Date of Disposition: 07/31/24
Time of Disposition: 23:50
Patient with high blood pressure during this ER visit?: Yes
Condition: Fair
Covid-19: Not Applicable
Discharge Problem:
Chest pain
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
Prescriptions:
No Action
lisinopril 5 mg Tablet
5 mg PO DAILY
levothyroxine [Synthroid] 112 mcg Tablet
112 mcg PO MOTUWETHFRSA
levothyroxine [Synthroid] 112 mcg Tablet
56 mcg PO SMILEY
Brilinta 90 mg Tablet
90 mg PO BID Qty: 180 3RF
aspirin 81 mg Tablet,Chewable
81 mg PO DAILY Qty: 0 0RF
nitroglycerin 0.4 mg tablet, sublingual
0.4 mg sublingual Q5-15M PRN (Reason: chest pain) Qty: 30 0RF
Referrals:
Obdulio Bernard PA [Family Provider, General]
Activity Restrictions/Additional Instructions:
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 Return if any worsening of symptoms.
Interventions
Interventions:
*Risk Screen - Suicide Last Done: 07/31/24 19:15
*General Assessment Last Done: 07/31/24 19:15
*Neglect/Abuse Screening Last Done: 07/31/24 19:15
*ED- Fall Risk Assessment Last Done: 07/31/24 19:15
*ED COVID-19 Vaccine History Last Done: 07/31/24 19:15
ED- Cardiac Assessment Last Done: 07/31/24 21:39
ED- Pulmonary Assessment Last Done: 07/31/24 21:39
Discharge Date and Time
Print Language: MAORI
[2024-07-31 21:15] LABS: % Basophils 0.8 % (0-2); % Immature Granulocytes 0.2 % (0-0.5); % Lymphocytes 12.8 % (20.5-51.1); % Neutrophils 75.2 % (42.2-75.2); Absolute Basophils 0.1 10^3/uL (0-0.2); Absolute Eosinophils 0.2 10^3/uL (0-0.7); Absolute Lymphocytes 1.1 10^3/uL (1.2-3.4); Absolute Monocytes 0.8 10^3/uL (0.1-0.6); Absolute Neutrophils 6.6 10^3/uL (1.4-6.5); Hemoglobin 14.1 g/dL (12.0-16.0); Mean Corp Hgb Conc. 34.4 g/dL (33.0-37.0); Mean Corpuscular Hgb 31.5 pg (27.0-31.0); Mean Corpuscular Volume 91.7 fL (81.0-99.0); Mean Platelet Volume 10.4 fL (7.4-10.4); Nucleated Red Blood Cells % 0 %; Platelet Count 271 10^3/uL (130-400); Red Blood Cell Count 4.47 10^6/uL (4.20-5.40); Red Cell Dist. Width 12.4 % (11.5-14.5); White Blood Cell Count 8.7 10^3/uL (4.8-10.8)
[2024-07-31 21:32] LABS: ALT (SGPT) 29 U/L (0-35); AST (SGOT) 29 U/L (14-36); Albumin 4.9 g/dl (3.5-5.0); Alkaline Phosphatase 66 U/L (38-126); Blood Urea Nitrogen 23 mg/dl (7-17); Calcium 10.4 mg/dl (8.4-10.2); Carbon Dioxide 27 mmol/L (22-30); Chloride 106 mmol/L (98-107); Estimated Creatinine Clearance 64 ml/min; Glucose 99 mg/dl (70-99); Potassium 4.5 mmol/L (3.5-5.1); Sodium 142 mmol/L (135-145); Total Bilirubin 0.6 mg/dl (0.2-1.3); Total Protein 7.7 g/dl (6.3-8.2); eGFR > 60.00
[2024-07-31 21:42] LABS: Troponin I < 0.012 ng/ml
[2024-07-31 22:39] VITALS: BP 90/67
[2024-07-31 23:00] VITALS: BP 112/67
== END 2024-08-01 00:20 | disposition home or self-care (01) ==
LOC: EMR 19:04
PROVIDERS: Emergency Medicine; EMERGENCY PHYSICIAN Emergency Medicine; FAMILY PHYSICIAN Physician Assistant Medical
DX: R07.89 Other chest pain (principal); R06.02 Shortness of breath; I25.10 Atherosclerotic heart disease of native coronary artery without angina pectoris; E78.00 Pure hypercholesterolemia, unspecified; E03.9 Hypothyroidism, unspecified; Z95.5 Presence of coronary angioplasty implant and graft
CPT/HCPCS: 99284; 71275; 80053; 84484; 85025; 93005; Q9967

== ENCOUNTER → 2024-10-29 09:49 | Outpatient (REF) | payer BC, SELFPAY | LOC: HWRAD 09:49 | PROVIDERS: ATTENDING PHYSICIAN Physician Assistant Medical | DX: R22.2 Localized swelling, mass and lump, trunk (principal) | CPT/HCPCS: 76604 ==

== ENCOUNTER 2024-11-11 17:11 | Observation (INO) | payer BC, SELFPAY ==
[2024-11-11] VITALS (8 sets, daily range): BP systolic 110–175; BP diastolic 70–103; BMI 24.6; BMI 23.0
[2024-11-11 14:13] LABS: Hematocrit 43.0 % (37.0-47.0); Hemoglobin 14.2 g/dL (12.0-16.0); Mean Corp Hgb Conc. 33.0 g/dL (33.0-37.0); Mean Corpuscular Volume 92.7 fL (81.0-99.0); Nucleated Red Blood Cells % 0 %; Platelet Count 283 10^3/uL (130-400); Red Cell Dist. Width 12.4 % (11.5-14.5)
[2024-11-11 14:38] LABS: Troponin I < 0.012 ng/ml
[2024-11-11 14:45] LABS: ALT (SGPT) 51 U/L (0-35); AST (SGOT) 39 U/L (14-36); Albumin 4.8 g/dl (3.5-5.0); Alkaline Phosphatase 95 U/L (38-126); Blood Urea Nitrogen 18 mg/dl (7-17); Calcium 10.2 mg/dl (8.4-10.2); Carbon Dioxide 28 mmol/L (22-30); Chloride 103 mmol/L (98-107); Glucose 107 mg/dl (70-99); Potassium 5.3 mmol/L (3.5-5.1); Sodium 137 mmol/L (135-145); Total Protein 7.4 g/dl (6.3-8.2); eGFR > 60.00
--- NOTE | 2024-11-11 15:02 | ED.GENMED ---
History of Present Illness
General
Chief Complaint: Chest Pain
Time Seen by Provider: 11/11/24 15:02
History of Present Illness
History of Present Illness:
FOCUSED PAST MEDICAL HISTORY
- CAD
REVIEW OF OLD RECORDS
- The patient had a coronary cath in September [address] Eagle and was found to have 90% mid LAD lesion with stent placed and was recommended to be on aspirin and Brilinta for a year. At that time her troponins were negative.
Note:
CHIEF COMPLAINT(S)
Chest pain
HISTORY OF PRESENT ILLNESS
The patient is a 59-year-old female with a history of stent placement in the mid-portion of the left anterior descending (LAD) coronary artery. She presented with episodes of chest pain that she describes as a stabbing and squeezing sensation
localized to the center of her chest. These episodes have occurred approximately 7 to 8 times, starting around 9 PM the previous night, and last for about 5 to 10 minutes. Initially, each episode lasted longer, approximately 15 to 20 minutes. The
pain occurs every two hours and is improved with rest. The patient reports that the pain is constant and does not change with movement. She denies recent falls or injuries to the chest wall and states that movement like flexing forward does not
alter the pain. The patient denies leg swelling or difficulty breathing. She describes no increase in symptoms with physical activities such as walking or ascending stairs. Initial cardiac workup, including blood tests and electrocardiogram (EKG),
indicated a slight change without major abnormalities. The patient will have her cardiac blood work repeated to further evaluate for acute coronary events.
PAST MEDICAL AND SURIGICAL HISTORY
The patient has a history of stent placement in the LAD coronary artery while being asymptomatic at the time of the procedure. She denies any previous endoscopies or evaluations of the esophagus or stomach.
EXTERNAL RECORDS REVIEWED
Review of the patients records indicates a previous cardiac catheterization performed by Dr. Bishop from [facility] with stent placement in the LAD. Dr. Courtney from [facility] has been identified as her current motor grader rough grade in the [facility] system.
PHYSICAL EXAM
General: Alert, no acute distress. Vital signs are normal.
Skin: Warm, dry.
Head: Normocephalic, atraumatic.
Neck: Supple, trachea midline.
Eye, Ears, Nose, Mouth, and Throat: Oral mucosa moist.
Cardiovascular: Normal peripheral perfusion, No edema. There is tenderness to palpation focally in the center of the sternum which is mild to moderate
Respiratory: Respirations are non-labored. Sounds are clear and equal
Gastrointestinal: Abdomen nondistended.
Back: Normal range of motion, Normal alignment.
Musculoskeletal: Normal ROM, normal strength.
Neurological: Alert and oriented to person, place, time, and situation. No focal neurological deficit observed.
Psychiatric: Cooperative, appropriate mood & affect.
PLAN
The plan includes consulting with the motor grader rough grade regarding the subtle changes in the EKG and repeating the cardiac blood work after three hours to rule out any acute coronary event. The cardiologists opinion will guide further management.
DIFFERENTIAL DIAGNOSIS
The Differential Diagnosis includes, in no particular order and is not limited to:
1. Non-cardiac chest pain
2. Myocardial ischemia
3. Acute coronary syndrome
4. Gastroesophageal reflux disease (GERD)
5. Musculoskeletal chest pain
6. Anxiety-related chest pain
7. Pulmonary embolism
8. Aortic dissection
9. Costochondritis
10. Peptic ulcer disease
EKG
- Sinus 54, suggestion of biphasic T wave in V3 through V5 which appears new in comparison to 07/31/2024
LABS
- CBC normal, potassium 5.3, troponin less than 0.012
UPDATE
-Discussion w/ Dr. Holley: 'SABINA HELEN, 59F, ROOM 30. Eagle stented mid-LAD lesion 09/2023 and at that time had no CP, just 'pasty hands and felt off'. Now w/ 16hrs of intermittent stabbing chest pain in center of chest that is non-exertional.
Initial trop negative, but EKG has more of a biphasic STT in V3-V5 which is new. Pain is becoming less frequent and there is some reproducibility. This HPI doesn't sound like much, but I don't want to ignore the EKG. She saw you in past, but ended
up seeing a Dr. Manzano at [facility] at recommendation of family members. Would you want to see in ED? I am planning on doing another trop at 5pm.'-Dr. Holley has agreed to evaluate the patient in the ED.
SUMMARY OF ENCOUNTER
The patient, a 59-year-old female, presented to the emergency department with episodes of chest pain. Due to her history of stent placement in the left anterior descending (LAD) coronary artery and the nature of her symptoms, the decision was made
to admit the patient for further management, including administration of aspirin and heparin, with a plan for cardiac catheterization the following day.
DISPOSITION
Admit
MANAGEMENT OF THE PATIENTS CARE WAS DISCUSSED WITH
Dr. Holley, upon evaluation in the emergency department, recommended that the patient stay in the hospital. He consulted with the hospitalists for admission and planned a cardiac catheterization for the following day.
MEDICAL DECISION MAKING
-Complexity of Data Reviewed: Chronic conditions affecting care with past medical history of stent placement in the LAD coronary artery. Differential diagnosis includes 1. Non-cardiac chest pain, 2. Myocardial ischemia, 3. Acute coronary syndrome,
4. Gastroesophageal reflux disease (GERD), 5. Musculoskeletal chest pain, 6. Anxiety-related chest pain, 7. Pulmonary embolism, 8. Aortic dissection, 9. Costochondritis, 10. Peptic ulcer disease.
-Data:
Category 3
Discussion of management with Dr. Holley, who recommended hospitalization and further cardiac evaluation.
DIAGNOSIS
Acute coronary syndrome, unspecified (ICD-10: I24.9)
Past History
Past History
ED Past Medical History: CAD, Hypercholesterolemia, Hypothyroidism and Other (Pneumonia; incidental gallstones, hepatic hemangioma)
ED Past Surgical History: Cardiac (PTCA with stent to the mid LAD September 2023)
Social History
Tobacco: Non-smoker
Alcohol: None
Personal:
Living: with family
Employment: Retired
Family History
Family History: Other (Noncontributory)
Phy Exam
Physical Exam
Physical Exam:
See HPI
Scores
Heart Score for Chest Pain Patients
STEMI patient?: Not applicable
Course
Orders/Labs/Results
Orders:
Orders
11/11/24 13:45
Electrocardiogram (*1) Urgent
Reason for Study: Chest Pain
EKG- Treatment ONCE
11/11/24 13:59
Complete Blood Count/With Diff Urgent
Comprehensive Metabolic Panel Urgent
Troponin I Urgent
11/11/24 15:15
EKG- Treatment ONCE
11/11/24 17:00
Electrocardiogram (*1) Urgent
Reason for Study: Chest Pain
Troponin I Urgent
Abnormal Lab Results
11/11/24
13:59
Potassium 5.3 H mmol/L
(3.5-5.1)
BUN 18 H mg/dl
(7-17)
Glucose 107 H mg/dl
(70-99)
AST 39 H U/L
(14-36)
ALT 51 H U/L
(0-35)
11/11/24 13:59
11/11/24 13:59
Vital Signs
Initial and Last Documented VS:
Initial Vital Signs
Temp Pulse Resp BP Pulse Ox
36.4 C 55 16 175/103 98
11/11/24 13:49 11/11/24 13:49 11/11/24 13:49 11/11/24 13:49 11/11/24 13:49
Last Documented Vital Signs
Temp Pulse Resp BP Pulse Ox
36.4 C 52 16 111/72 100
11/11/24 13:49 11/11/24 15:00 11/11/24 15:00 11/11/24 15:00 11/11/24 15:04
*Pulse Oximetry
SaO2: 100
Oxygen Mode of Delivery: Room air
Patient hypoxic: no
*Critical Care Note
Total Time (30-74mins, 75-104mins- exclusive of procedures): Not Applicable
ED Attending Note
-
Portions of this chart may have been created with voice recognition software.� Occasional wrong word or��sound alike� substitutions may have occurred due to the inherent limitations of voice recognition software.
Discharge Plan
Departure
Patient Disposition: Admit
Date of Disposition: 11/11/24
Time of Disposition: 16:15
Presentation/result/management discussed w/ accepting MD/DO: Hospitalist
Discharge Problem:
Acute coronary syndrome
Prescriptions:
No Action
lisinopril 5 mg Tablet
5 mg PO DAILY
levothyroxine [Synthroid] 112 mcg Tablet
112 mcg PO MOTUWETHFRSA
levothyroxine [Synthroid] 112 mcg Tablet
56 mcg PO SMILEY
Brilinta 90 mg Tablet
90 mg PO BID Qty: 180 3RF
aspirin 81 mg Tablet,Chewable
81 mg PO DAILY Qty: 0 0RF
nitroglycerin 0.4 mg tablet, sublingual
0.4 mg sublingual Q5-15M PRN (Reason: chest pain) Qty: 30 0RF
Referrals:
Obdulio Bernard PA [Family Provider, General]
Interventions
Interventions:
*Risk Screen - Suicide Last Done: 11/11/24 13:49
*General Assessment Last Done: 11/11/24 13:49
*Neglect/Abuse Screening Last Done: 11/11/24 13:49
*ED- Fall Risk Assessment Last Done: 11/11/24 13:49
*ED COVID-19 Vaccine History Last Done: 11/11/24 13:49
Discharge Date and Time
Print Language: S[place]ORE[place]
--- NOTE | 2024-11-11 16:21 | HPS.HSE ---
Family Physician
-
Family Physician: SORAIDA Gates
Chief Complaint
-
chest pain
History of Present Illness
Patient is a 59-year-old female with past medical history significant for hypertension, hyperlipidemia, hypothyroid and CAD who presented to [facility] ED for evaluation of chest pain. Patient reports acute onset of midsternal chest pain around 2100 last
night while shopping at grocery store, it lasted approximately 20mins and subsided once she sat down for a period of time. Patient states pain did not radiate and has occurred every few hours since then with and without exertional aggravating
factors, it did wake her from sleep over night x2. Since pain continued throughout the first half of today she felt she needed to come for evaluation. She denies any dizziness, shortness of breath, dizziness, palpitations or diaphoresis. Patient
notes that rosuvastatin has been on hold for approximately last month for elevated LFTs.
Medical History
Past Medical History
Past Medical History: Reports Other
Additional Past Medical History:
hypertension
hyperlipidemia
hypothyroid
CAD
Past Surgical History: Reports Other
Additional Past Surgical History:
cardiac cath with stent
tonsillectomy
section x2
Social History
Tobacco: Non-smoker
Alcohol: None
Family History
Family History: Other (Mother: CVA, a-fib; Brother: a-fib; Father: prostate cancer, hypothyroid )
Allergies / Home Medications
Allergies reflects when Allergies were last updated in [employer].
Home Medications with original date entered in [employer]
Allergy/Medication List:
Allergies
Allergy/AdvReac Type Severity Reaction Status Date / Time
No Known Allergies Allergy Verified 07/31/24 19:15
Home Medications
levothyroxine 112 mcg tablet (Synthroid) 112 mcg PO DAILY 01/21/23
lisinopril 5 mg tablet 5 mg PO DAILY 11/27/23
ticagrelor 90 mg tablet (Brilinta) 90 mg PO BID #180 tabs 10/15/23
aspirin 81 mg chewable tablet 81 mg PO DAILY #0 tabs 10/16/23
rosuvastatin 5 mg tablet 5 mg PO MOWEFR 11/11/24
Review of Systems
-
History Source: Patient
Constitutional: Denies Fever or Chills
EENT: Reports No Symptoms
Respiratory: Denies Cough or Trouble Breathing
Cardiac: Reports Chest Pain; Denies Diaphoresis, Palpitations or Syncope
Abdomen/GI: Denies Abdominal Pain, Nausea, Vomiting, Diarrhea or Constipated
: Denies Frequency or Urgency
Musculoskeletal: Denies Joint Swelling or Edema
Skin: Reports No Symptoms
Neurological: Reports No Symptoms; Denies Dizzy, Headache, Weakness or Numbness
Endocrine: Reports No Symptoms
Hematologic/Lymphatic: Reports No Symptoms
Psych: Reports No Symptoms
Physical Exam
Vital Signs
Vital Signs
Temp Pulse Resp BP Pulse Ox
97.5 F 52 16 111/72 100
11/11/24 13:49 11/11/24 15:00 11/11/24 15:00 11/11/24 15:00 11/11/24 15:04
Physical Exam
General: Well Developed, Well Nourished and No Apparent Distress
HEENT: NormoCephalic, Moist mucous membranes and Atraumatic
Respiratory: Clear and Non Labored Respirations
Cardiac: S1/S2 and Regular Rhythm; No Murmur, Rub, Gallop or Peripheral Edema
Breast: Deferred by me
GI: Soft, Non Tender, Non Distended and Normal Bowel Sounds; No Organomegaly
Rectal: Deferred by Provider
Genito-urinary: Deferred by me
Musculoskeletal: No Clubbing, No Cyanosis and No Edema
Skin: Warm and IV/Catheter Site
Neuro: Awake, AO x 3 and Nonfocal/grossly intact
Hematologic/Lymphatic: No Lymphadenopathy
Psych: Calm and Intact Judgment/Insight
Laboratory Results
-
11/11/24 13:59
11/11/24 13:59
Laboratory Results
Total Bilirubin 0.4 mg/dl (0.2-1.3) 11/11/24 13:59
AST 39 U/L (14-36) H 11/11/24 13:59
ALT 51 U/L (0-35) H 11/11/24 13:59
Alkaline Phosphatase 95 U/L (38-126) 11/11/24 13:59
Troponin I < 0.012 ng/ml 11/11/24 13:59
Data Reviewed
-
Medical Tests (Nuc Med, Echo, EKG etc): Report Reviewed by me (EKG: SINUS BRADYCARDIA T WAVE ABNORMALITY, CONSIDER LATERAL ISCHEMIA)
Lab Data: Labs Reviewed by me
Impression/Plan
-
IMPRESSION/PLAN:
#unstable angina
trop <0.012
EKG: SINUS BRADYCARDIA
T WAVE ABNORMALITY, CONSIDER LATERAL ISCHEMIA
- Admit to IVU
- Consult Cardiology
- NPO at midnight for cath tomorrow
- Heparin gtt
- full dose aspirin given in ED
- trend troponin
- ECHO
- continue aspirin and Brilinta
- PRN nitro for chest pain
#hypertension
- continue lisinopril
#hyperlipidemia
- rosuvastatin on hold for approximately 1 month for elevated LFTs
#hypothyroid
- continue levothyroxine
#CAD
s/p cardiac cath with stent to LAD
Code status: full code
DVT prophylaxis: heparin gtt
--- NOTE | 2024-11-11 16:26 | CON.CAR ---
Addendum entered and electronically signed by Nayan Holley MD 11/11/24 17:08:
I saw and examined the patient independently. I performed majority of MDM.
The SOCIAL WORK MSW's note was reviewed and I agree with the note, with additions/changes as noted below.
Comment: 59 yo female with PMH of CAD s/p VICENTE to LAD 09/2023 admitted with chest pain. She went shopping last night. [place] squeezing sensation in chest, which then resolved. She then felt another few episodes at rest overnight. She is currently chest
pain free. Exam with RRR, no murmurs, no edema. EKG: NSR, anterolateral TWI. TnI <0.012.
ACS/unstable angina. Threat to life. Currently chest pain free, Anterolateral TWI had resolved following prior PCI, but now are present again. ASA 324mg, heparin drip. She continues on brilinta. Plan for cath in AM.
Original Note:
Consultation
Consultation Request
Date/Time Consultation Requested: 11/11/247
Date/Time Consultation Performed: 11/11/24 1535
Requesting Provider: Dr. Barragan
Performing Provider: Ana MONSALEV for Dr. Holley
Reason for Consultation: chest discomfort, abnormal EKG
Medical History
-
Chief Complaint: chest discomfort
History of Present Illness:
59 y/o female with hypothyroidism, hypertension, dyslipidemia, and CAD with LAD stenting (10/16/23) who is here with midsternal chest squeeze that started last night around 9 PM while she was shopping. It lasted about 20 minutes. It has recurred
about every 2 hours since then, including at rest. No correlation with any particular activity. It is not present currently. Trop is normal. EKG shows anterolateral t wave abnormality. She has had VEGA for about 1 month, and also reports some head
pressure for 2 weeks. She is off her statin currently due to abnormal LFT's. Dr. Manzano is her primary nuclear control operator and she last saw him about 1 month ago, and reports stability from cardiac standpoint at that time. She is in no distress at the
time of my assessment.
Past Medical History
Past Medical History: CAD, HTN, Hypercholesterolemia and Hypothyroidism
Social History
Tobacco: Non-Smoker
Alcohol: None
Family History
Family History: Reviewed & Not Pertinent (no early CAD)
Allergies / Home Medications
Allergy/AdvReac Type Severity Reaction Status Date / Time
No Known Allergies Allergy Verified 07/31/24 19:15
�Medication �Instructions �Recorded �Confirmed �Type
levothyroxine 112 mcg tablet 112 mcg PO MOTUWETHFRSA 01/21/23 12/15/23 History
(Synthroid)
lisinopril 5 mg tablet 5 mg PO DAILY 01/21/23 12/15/23 History
levothyroxine 112 mcg tablet 56 mcg PO SMILEY 10/15/23 12/15/23 History
(Synthroid)
ticagrelor 90 mg tablet (Brilinta) 90 mg PO BID #180 tabs 10/15/23 12/15/23 Rx
aspirin 81 mg chewable tablet 81 mg PO DAILY #0 tabs 10/16/23 12/15/23 Rx
nitroglycerin 0.4 mg sublingual 0.4 mg sublingual Q5-15M PRN chest 10/16/23 12/15/23 Rx
tablet pain #30 tabs
Review of Systems
-
History Source: Patient
All other systems: Negative unless noted
Constitutional: Other (head pressure )
Respiratory: Trouble Breathing
Cardiac: Chest Pain
Physical Exam
Vital Signs
Temp Pulse Resp BP Pulse Ox
97.5 F 52 16 111/72 100
11/11/24 13:49 11/11/24 15:00 11/11/24 15:00 11/11/24 15:00 11/11/24 15:04
Lab Results
11/11/24 13:59
11/11/24 13:59
Troponin I < 0.012 ng/ml 11/11/24 13:59
Physical Exam
General: Well Developed, Well Nourished and No Apparent Distress
HEENT: Normocephalic and Anicteric
Respiratory: Clear and Non Labored Respirations
Cardiac: Regular Rhythm
Musculoskeletal: No Edema
Skin: Warm and Dry
Neuro: AO x 3
Psych: Calm
Impression / Plan
-
ACS/USA:
-this diagnosis is threat to life
-give full dose aspirin now, start heparin drip, which requires intensive monitoring
-continue ASA and Brilinta
-check lipids and hgbA1c. Has been off statin due to abnormal LFT's.
-nitro if needed for CP. Not on BB due to bradycardia.
-cath in AM, or sooner if the need arises
-follow trops and EKG's
-obtain echo
CAD with hx LAD stenting:
-continue ASA and brilinta
-plan as above
Dyslipidemia:
-check lipids
-statin issue as above
HTN:
-stable
-continue ACEI and monitor
Data Reviewed
-
EKG: Tracing Personally Visualized and interpreted (SB 54 BPM, anterolateral t wave changes)
Medical Tests (Nuc Med, Echo etc): Report Reviewed by me (echo 10/19/23: Normal echocardiogram. LVEF 65-70%. Compared to 04/16/22: no significant change. ) and Other (cath 10/16/23: 1. Normal LV filling pressures with no aortic stenosis 2.
Single-vessel obstructive coronary artery disease with culprit 90% occlusion of the mid-LAD 3. Successful IVUS-guided PCI to the mid-LAD with placement of a 2.5x22 mm VICENTE post-dilated to 2.75 mm proximally)
Labs: Labs Reviewed by me
Scores
TITO for NSTEMI
Age >/= 65: No
>/=3 CAD risk factors-HTN,High Chol,Fam hx CAD,DM,Smoker: No
Known CAD (stenosis >/=50%): Yes
ASA use in past 7 days: Yes
Severe angina (>/= 2 episodes in 24 hrs): Yes
EKG ST Changes >/= 0.5mm: No
Positive cardiac marker: No
Score: 3
Risk at 14 days-mortality, new/recurrent LA, severe ischemia: Intermediate Risk- 13% Risk at 14 days- all cause mortality, new or recurrent LA, or severe recurrent ischemia requiring urgent revascularization
[2024-11-11] MEDS: HEPARIN 25000 UNITS/250 ML IV (16:32)
[2024-11-11] MEDS: HEPARIN 4000 UNITS IV (16:32)
[2024-11-11 16:43] LABS: APTT 26.8 Sec (23.4-35.0)
--- NOTE | 2024-11-11 16:55 | W.PN.UPDATE ---
Update Note
Progress Note Update
This is an addendum to H&P written by BIOMETRIC SCREENER Nava Gonzalez
I saw and examined the patient.
The BIOMETRIC SCREENER's note was reviewed and I agree with the note.
Comment:
Ms. Karen Eduardo is a 59 yo woman with hx HTN, Hypothyroidism, HLD, CAD s/p PCI 10/16/23 presents to the ER with chest pain that started yesterday evening. Patient reports pain has been recurring every 2 hours, including at rest. She is currently
chest pain free.
Triage VS: T 97.5, P 52, RR 16, BP 111/72, SpO2 100%
On exam patient is awake, alert, in no distress. CV: S1, S2, RRR; Chest clear
LABS: WBC 5, Hg 14.2, PLT 283, Na 137, K+ 5.3, CO2 28, BUN 18, Cr 0.8, Glucose 107, Ca 10.2, T. Bili 0.4, AST 39, ALT 51
Trop < 0.012
EKG: sinus bradycardia @ 54, biphasic T wave lateral leads new
MAR: Asa 325mg PO x 1, initiation of IV Heparin gtt
Chest pain
Hx CAD s/p PCI 10/16/23
Essential HTN
HLD
-admit to IVU
-continue [facility] Aspirin and Brilinta
-continue IV Heparin gtt
-appreciate Cariology consult
-NPO after MN for cath tomorrow
-TTE
-[facility] Lisinopril
-Patient's statin has been on hold given elevated liver enzymes
Hypothyroidism - [facility]IC[facility] Synthroid
DVT PPx IV heparin gtt
GI PPx Protonix
FULL CODE
[2024-11-11] MEDS: ASPIRIN 325 MG PO (16:56)
[2024-11-11 16:58] LABS: Troponin I < 0.012 ng/ml
[2024-11-11] MEDS: PROTONIX 40 MG PO (17:20)
[2024-11-11] MEDS: BRILINTA 90 MG PO (19:44)
--- NOTE | 2024-11-11 20:38 | PTCARENOTE ---
Received patient at change of shift. SR on the monitor, HR in the 60s. Heparin running as per protocol, see documentation. No chest pain at this time. NPO at midnight. No complaints from pt at this time, call lares within reach.
[2024-11-11 23:17] LABS: APTT 170.4 Sec (23.4-35.0)
[2024-11-11 23:26] LABS: Troponin I < 0.012 ng/ml
[2024-11-12] VITALS (12 sets, daily range): BP systolic 89–122; BP diastolic 56–71
[2024-11-12] MEDS: SYNTHROID 112 MCG PO (06:17)
[2024-11-12 06:24] LABS: Hematocrit 38.0 % (37.0-47.0); Hemoglobin 13.0 g/dL (12.0-16.0); Mean Corp Hgb Conc. 34.2 g/dL (33.0-37.0); Mean Corpuscular Volume 92.2 fL (81.0-99.0); Platelet Count 263 10^3/uL (130-400); Red Cell Dist. Width 12.4 % (11.5-14.5)
[2024-11-12 06:38] LABS: APTT 141.8 Sec (23.4-35.0)
--- NOTE | 2024-11-12 08:01 | W.PN.CD ---
Today's Communication / Plan
-
Cardiac catheterization today.
Restart rosuvastatin 5 mg.
Start ezetimibe 10 mg daily.
Echocardiogram.
Impression / Plan
-
Impression/Plan: 59 y/o female with HTN, HLD and CAD with prior PCI (09/2023) admitted with chest pain concerning for unstable angina.
#ACS/USA:
-Acute, this diagnosis is threat to life.
-EKG shows abnormal T waves (similar to prior EKG before LAD PCI).
-Troponin negative x3.
-Continue DAPT.
-Cardiac catheterization today for clarification of coronary anatomy.
-Echocardiogram ordered/pending.
#CAD
-Hx of LAD PCI ([employer] [place] 2.5 x 22 VICENTE, post dilated with 2.75 NC balloon in proximal section), 10/16/2023.
-Continue DAPT.
-Aggressive secondary prevention.
#Dyslipidemia:
-Chronic, stable.
-Total cholesterol = 207, LDL = 134, HDL = 59, Triglycerides = 73.
-Prior intolerance of atorvastatin 80 mg daily (muscle aches). At some point she was started on rosuvastatin 5 mg daily.
-If this is her max tolerated dose, we will need to start ezetimibe and start the process of [id number] approval for outpatient use.
-Goal LDL < 55.
#HTN:
-Chronic, currently borderline hypotensive.
-Hold lisinopril.
Subjective/Interval History:
Mild/moderate hypotension this morning (89/66 mmHg @ 07:17).
DATA:
Cardiac Catheterization/PCI, 10/16/2023:
CONCLUSIONS:
1. Normal LV filling pressures with no aortic stenosis.
2. Single-vessel obstructive coronary artery disease with culprit 90% occlusion of the mid-LAD.
3. Successful IVUS-guided PCI to the mid-LAD with placement of a 2.5x22 mm VICENTE post-dilated to 2.75 mm proximally.
TTE, 10/15/2023:
CONCLUSIONS
Normal echocardiogram. LVEF 65-70%.
Physical Exam
Vital Signs/Labs
Vital Signs
Temp Pulse Resp BP Pulse Ox
36.7 C 49 20 93/60 96
11/12/24 07:17 11/12/24 07:45 11/12/24 07:17 11/12/24 07:19 11/12/24 07:17
11/10/24 11/11/24 11/12/24
11:59 11:59 11:59
Actual Weight 64.7 kg
11/12/24 06:13
APTT 141.8 Sec (23.4-35.0) H 11/12/24 06:13
LAB Results
11/11/24 11/11/24 11/11/24
13:59 16:23 22:55
Troponin I < 0.012 < 0.012 < 0.012
Physical Exam
Constitutional: No acute distress and Comfortable
EENT: Anicteric and Moist mucous membranes
Cardiovascular: Rhythm & rate is regular, Pedal edema is absent, JVD pressure is normal, S1S2 is normal and Murmur/rub/gallop absent
Respiratory: Respiratory effort normal, Lungs clear to auscul., Wheeze Absent, Crackles Absent and Rhonchi Absent
GI: Soft, Distention absent, Flat, Non tender and Normal bowel sounds
Neuro/Psych: AO x 3
Data Reviewed
-
Date of Service: November 12, 2024
Medical Decision Making: Reviewed Test Results, Independent Historian Assessment and Test Interpretation
EKG: Tracing Personally Visualized and interpreted and Report Reviewed by me
Echo: Report Reviewed by me
X-Ray/CT/US/MRI/NUC/PET: Image Personally Visualized and interpreted and Report Reviewed by me
Medical Tests (PFT, Pathology etc): Image Personally Visualized and interpreted, Report Reviewed by me and Discussed with Patient
Labs: Labs Reviewed by me
Old Records: Reviewed
[2024-11-12 08:05] LABS: ALT (SGPT) 44 U/L (0-35); AST (SGOT) 37 U/L (14-36); Albumin 4.1 g/dl (3.5-5.0); Alkaline Phosphatase 87 U/L (38-126); Blood Urea Nitrogen 23 mg/dl (7-17); Calcium 9.9 mg/dl (8.4-10.2); Carbon Dioxide 22 mmol/L (22-30); Chloride 110 mmol/L (98-107); Estimated Creatinine Clearance 82 ml/min; Glucose 97 mg/dl (70-99); HDL Cholesterol 59 mg/dl; LDL Cholesterol, Calculated 134 mg/dl; Potassium 4.4 mmol/L (3.5-5.1); Sodium 139 mmol/L (135-145); Total Protein 6.6 g/dl (6.3-8.2); Very Low Density Lipoprotein 14 mg/dl (0-30); eGFR > 60.00
[2024-11-12] MEDS: BRILINTA 90 MG PO (08:06)
[2024-11-12] MEDS: LOW STRENGTH ASPIRIN 81 MG PO (08:06)
[2024-11-12] MEDS: PROTONIX 40 MG PO (08:06)
--- NOTE | 2024-11-12 08:50 | W.PN.HOSP.TC ---
Today's Communication/Plan
-
.
Assessment / Plan
Assessment / Plan
Physical Exam
General: Well Developed, Well Nourished and No Apparent Distress
HEENT: NormoCephalic, Moist mucous membranes and Atraumatic
Respiratory: Clear and Non Labored Respirations
Cardiac: S1/S2, no Peripheral Edema
GI: Soft, Non Tender, Non Distended and Normal Bowel Sounds;
Genito-urinary: No [place]
Musculoskeletal: No Clubbing, No Cyanosis and No Edema
Neuro: Awake, AO x 3 and Nonfocal/grossly intact
Psych: Calm and Intact Judgment/Insight
A/P :
#unstable angina
Patient risk factor include pre-existing coronary artery disease
Troponin x 3 negative
No significant EKG changes today
Currently on IV heparin
Plan to pursue left heart catheterization
Appreciate cardiology input
#hypertension
- continue lisinopril
# Hyperkalemia, resolved.
# Elevated liver enzyme, statin was held in the outpatient setting. Patient had ultrasound in February, that showed cholelithiasis and hepatic hemangioma
Will recommend to repeat abdominal ultrasound or further imaging in outpatient setting
#hyperlipidemia
- rosuvastatin on hold for approximately 1 month for elevated LFTs
#hypothyroid
- continue levothyroxine
#CAD
s/p cardiac cath with stent to LAD
Total time spent to see the patient, examine the patient, review data and lab results, discuss treatment plan with patient, nursing staff around 55 minutes
Anticipated Discharge: Within 24 hours
Subjective/Interval History
-
Date of Service: November 12, 2024
No current chest pain but had an episode last night
No sob
Objective Data
-
Labs:
Laboratory Results
11/11/24 11/12/24 11/12/24
22:55 06:13 13:45
WBC 5.9
Hgb 13.0
Hct 38.0
Plt Count 263
APTT 170.4 H* 141.8 H Pending
Sodium 139
Potassium 4.4
Chloride 110 H
Carbon Dioxide 22
BUN 23 H
Creatinine 0.7
Glucose 97
Calcium 9.9
Total Bilirubin 0.5
AST 37 H
ALT 44 H
Alkaline Phosphatase 87
Vital Signs:
Vital Signs
Temp Pulse Resp BP Pulse Ox
98.1 F 49 20 93/60 96
11/12/24 07:17 11/12/24 07:45 11/12/24 07:17 11/12/24 07:19 11/12/24 07:17
I&O
11/11/24 11/12/24 11/13/24
06:59 06:59 06:59
Intake Total 200 / 200
Balance 200 / 200
--- NOTE | 2024-11-12 09:45 | ITS.CL.CATH ---
Cartography/Mapping Technician - Catheterization
Cardiac Catheterization
Procedure Report:
CARDIAC CATHETERIZATION REPORT
Date of Procedure: 11/12/2024
Referring: Nayan Holley M.D., Ph.D.
INDICATION: History of coronary artery disease, chest pain concerning for unstable angina.
PROCEDURE:
1. Left heart catheterization.
2. Coronary angiography.
A total of 22 minutes of procedural/moderate sedation was utilized. An independent medical director/head team physician was present to assist with and help manage the patient's level of consciousness and physiologic status.
ACCESS:
1. 6 Danish right radial artery using a modified Seldinger technique.
CATHETERS:
1. 5 Danish JR4.
2. 5 Danish JL 3.5.
HEMODYNAMIC DATA
Weight (kg): 64.4
AO (s/d/x, mmHg): 138/84/102
LV (s/x mmHg): 142/4
LEFT VENTRICULOGRAPHY: Not performed.
CORONARY ANGIOGRAPHY
Dominance: Right.
Left Main: Normal size, trifurcating vessel. There is no coronary artery disease.
LAD: Normal size vessel giving rise to 1 significant diagonal. A patent stent is visible in the mid vessel. There is no coronary artery disease or evidence of ISR. The distal LAD is severely tortuous.
Ramus: Small to medium size vessel supplying the proximal anterolateral wall. There is no coronary artery disease.
Circumflex: Normal size, nondominant vessel that gives rise to an obtuse marginal before terminating as a small left posterolateral branch. The obtuse marginal arises very high on the circumflex, nearly at the left main coronary. There is no
coronary artery disease.
RCA: Normal size, dominant vessel with a large posterolateral arcade. There is a 10% lesion in the proximal vessel. The distal RPDA and RPL branches are severely tortuous.
INTERVENTION(S)
None.
Closure Device: Vascular band.
Radiation (mGy): 178.73
DAP (cm2.Gy): 11.0784
Fluoroscopy time (minutes): 2.3
CONCLUSIONS
1. Right dominant circulation with a 10% lesion in the proximal RCA, a patent stent in the mid LAD and severe tortuosity of the distal LAD and RPDA/RPL. No new coronary artery disease.
2. Normal filling pressures (LVEDP = 4 mmHg at 64.4 kg).
RECOMMENDATIONS:
1. Expectant management after cardiac catheterization via right radial approach.
2. Limited weight bearing on the right wrist for one week.
3. Maintain aspirin 81 mg daily. Given the temporal distance from her PCI, we can discontinue ticagrelor at this time.
4. Lactated Ringer's bolus 250 mL given relatively low filling pressures and relative hypotension this morning.
5. Aggressive secondary prevention with rosuvastatin 5 mg daily. She is tolerating this dose without myalgias. Start ezetimibe 10 mg daily. Goal LDL <55.
6. The patient may require outpatient PCSK9 inhibitors.
7. Consider esophageal spasm/GERD for source of central chest pressure in the absence of obstructive coronary artery disease.
Copy to: Nayan Holley M.D., Ph.D., Ginny Celeste M.D.
Justen Silva DO, FACC, FACP
[2024-11-12] MEDS: LR 250 IV (10:21)
--- NOTE | 2024-11-12 10:29 | CM ---
Chart reviewed. Patient is independent of ADLS, lives alone in a 1 [address], 0 MADDIE, 0 DME. Plan is for the patient to return home.
[2024-11-12] MEDS: NSS 1000 IV (10:45)
[2024-11-12] MEDS: ZETIA 10 MG PO (11:11)
[2024-11-12 13:29] LABS: Glycohemoglobin (HgbA1c) 5.4 % (4.0-5.6)
--- NOTE | 2024-11-12 18:46 | PTCARENOTE ---
Pt had cardiac cath done via right radial artery, radial band removed over many hours due to oozing but site was dry and intact, no hematoma. Pt walking around unit without problem.Pt seen by . Telemetry and IV device removed. Discharge
instructions reviewed with pt regarding activity and driving restrictions, wound care, medications and their possible side effects, reporting cares and concerns and follow up appt's. Very good understanding verbalized. Pt escorted out via wheelchair
and pt discharged to home.
--- NOTE | 2024-11-13 12:20 | W.DCSUMMARY ---
Discharge Summary
Discharge Data
Date of Admission: 11/11/24
Date of Discharge: 11/12/24
-
Pending Results: No
Hospital Course
59 years old female presented for evaluation of chest pain. Patient had history of coronary artery disease. Troponin was negative on admission. Patient was evaluated by buckler and lacer. EKG showed normal sinus rhythm with anterolateral T wave
changes. Measurer recommended to start intravenous heparin and be evaluated for left heart catheterization. Serial troponin remained negative. Lipid panel showed LDL 134, total cholesterol 207, triglycerides 73. Left heart catheterization
showed no obstructive coronary disease. Measurer recommended to maintain aspirin and to stop ticagrelor. She was also started on Zetia and recommended to continue Crestor. Patient was advised to take a short course of Protonix and follow-up
with her primary care doctor to consider esophageal spasm/GERD as a source of chest pressure.Patient reported mildly elevated liver enzymes and was following with her primary care doctor. She was advised to continue following with her doctor and to
consider imaging studies as ultrasound/CAT scan. Patient verbalized understanding to discharge instructions. She remained hemodynamically stable and was discharged home in a stable condition.
Discharge Plan
-
Patient Disposition: Home (Routine Discharge)
Discharge Diagnosis/Procedures: Cardiac cath
You were admitted with chest pain. You were evaluated by buckler and lacer. Cardiac catheterization did not show obstructive coronary disease. Measurer recommended to continue with aspirin only and added Zetia for secondary prevention.
You have mildly elevated liver enzyme. Follow-up with your primary care doctor to consider imaging studies like ultrasound/CAT scan.
Diet: Low Cholesterol
Driving Restrictions: No driving for 24 hours
Stand Alone Forms: DC Instructions- Cath/EP Lab
Referrals:
Obdulio Bernard PA [Family Provider, General] - in one to two weeks
Lucas Courtney MD [Non-Admitting Privileges, Cardiology] - in two to four weeks
Prescriptions:
New
pantoprazole 40 mg Tablet,Delayed Release (Dr/Ec)
40 mg PO DAILY Qty: 30 0RF
ezetimibe 10 mg Tablet
10 mg PO DAILY Qty: 30 0RF
Continued
lisinopril 5 mg Tablet
5 mg PO DAILY
levothyroxine [Synthroid] 112 mcg Tablet
112 mcg PO DAILY
aspirin 81 mg Tablet,Chewable
81 mg PO DAILY Qty: 0 0RF
rosuvastatin 5 mg tablet
5 mg PO MOWEFR
Rx Instructions:
on hold for elevated LFTs for approximately last month
Discontinued
ticagrelor [Brilinta] 90 mg Tablet
90 mg PO BID Qty: 180 3RF
Discharge Orders:
Discharge Patient (As Directed); Ordered 11/12/24
Ordered By: Jayla Price
Care Plan Goals
Care Plan Goals:
Problem: Readiness for enhanced knowledge related to diagnosis and treatment plan
Goal: Understand your diagnosis and treatment plan needs, including medications if applicable.
Instructions: Know your diagnosis, underlying causes and treatment plan options, including medications if applicable. Consult with your health care team to learn about your diagnosis and treatment plan, including medications if applicable.
Discharge Date and Time
Discharge Date/Time: 11/12/24 18:15
Print Language: BURMESE
== END 2024-11-12 18:15 | disposition home or self-care (01) ==
LOC: IVU 17:11
PROVIDERS: Emergency Medicine; Nurse Practitioner; ADMITTING PHYSICIAN Student in an Organized Health Care Education/Training Program; ATTENDING PHYSICIAN Internal Medicine; CONSULT PHYSICIAN Internal Medicine; EMERGENCY PHYSICIAN Emergency Medicine; FAMILY PHYSICIAN Physician Assistant Medical
DX: I25.110 Atherosclerotic heart disease of native coronary artery with unstable angina pectoris (principal); R07.9 Chest pain, unspecified; E78.00 Pure hypercholesterolemia, unspecified; E03.9 Hypothyroidism, unspecified; R94.31 Abnormal electrocardiogram [ECG] [EKG]; I95.9 Hypotension, unspecified; E87.5 Hyperkalemia; R00.1 Bradycardia, unspecified; I10 Essential (primary) hypertension; Z79.82 Long term (current) use of aspirin; Z90.89 Acquired absence of other organs; Z82.3 Family history of stroke; Z83.49 Family history of other endocrine, nutritional and metabolic diseases; Z80.42 Family history of malignant neoplasm of prostate; Z79.890 Hormone replacement therapy; Z79.02 Long term (current) use of antithrombotics/antiplatelets; Z87.01 Personal history of pneumonia (recurrent); Z95.5 Presence of coronary angioplasty implant and graft
CPT/HCPCS: 80053; 80061; 83036; 84484; 85025; 85027; 85730; 93005; 93306; 93458; 96374; 96376; 99152; 99285; C1769; C1894; G0378; Q9967